=== PATIENT | male | born 1960 | race Caucasian/White ===

== ENCOUNTER 2017-02-15 09:06 | Emergency (ER) | payer BC ==
[2017-02-15] MEDS ORDERED: ASPIRIN 81 MG TABLET, CHEWABLE PO ONE (09:25)
[2017-02-15] MEDS ORDERED: MECLIZINE HCL 25 MG TABLET PO ONE (09:26)
[2017-02-15 10:00] LABS: ABSOLUTE BASOPHILS # (AUTO) 0.1 10^3/uL (0.0-0.2); ABSOLUTE EOSINOPHILS # (AUTO) 0.1 10^3/uL (0.0-0.6); ABSOLUTE LYMPHOCYTES (AUTO) 1.1 10^3/uL (0.5-4.7); ABSOLUTE MONOCYTES (AUTO) 0.5 10^3/uL (0.1-1.4); ABSOLUTE NEUT (AUTO) 5.7 10^3/uL (1.7-8.2); BASOPHILS % (AUTO) 0.8 % (0-2); EOSINOPHILS % (AUTO) 1.5 % (0-6); HEMATOCRIT 43.3 % (37.9-51.0); HEMOGLOBIN 15.5 g/dL (13.5-17.0); HGB HCT DIFFERENCE 3.2; LYMPHOCYTES % (AUTO) 14.8 % (13-45); MEAN CORPUSCULAR HEMOGLOBIN 30.2 pg (27.0-33.4); MEAN CORPUSCULAR HGB CONC 35.8 g/dL (32.0-36.0); MEAN CORPUSCULAR VOLUME 84 fl (80-97); MONOCYTES % (AUTO) 6.8 % (3-13); RED BLOOD COUNT 5.14 10^6/uL (4.35-5.55); RED CELL DISTRIBUTION WIDTH 13.9 % (11.5-14.0); SEGMENTED NEUTROPHILS % (AUTO) 76.1 % (42-78); WHITE BLOOD COUNT 7.5 10^3/uL (4.0-10.5)
--- NOTE | 2017-02-15 10:09 | RADIOLOGY REPORT (SQ) ---
EXAM DESCRIPTION: CT HEAD WITHOUT COMPLETED DATE/TIME: 02/15/2017 9:59 am REASON FOR STUDY: dizziness COMPARISON: CT brain 01/18/2014 TECHNIQUE: Axial images acquired through the brain without intravenous contrast. Images reviewed wi th bone, brain and subdural windows. Images stored on PACS. All CT scanners at this facility use dose modulation, iterative reconstruction, and/or weight based d osing when appropriate to reduce radiation dose to as low as reasonably achievable (ALARA). [facility]: Dose Right [facility]: CareDose [facility]: Dose Right [facility]: Teradose 4D [facility]: iconDial RADIATION DOSE: Up-to-date CT equipment and radiation dose reduction techniques were employed. CTDIv ol: 64.6 mGy. DLP: 1163 mGy-cm. mGy. LIMITATIONS: Mild motion artifact. FINDINGS: VENTRICLES: Normal size and contour. CEREBRUM: No masses. No hemorrhage. No midline shift. No evidence for acute infarction. Normal gra y/white matter differentiation. No areas of low density in the white matter. CEREBELLUM: No masses. No hemorrhage. No alteration of density. No evidence for acute infarction. EXTRAAXIAL SPACES: No fluid collections. No masses. ORBITS AND GLOBE: No intra- or extraconal masses. Normal contour of globe without masses. CALVARIUM: No fracture. PARANASAL SINUSES: Air-fluid level left frontal sinus worrisome for acute sinusitis. SOFT TISSUES: No mass or hematoma. OTHER: No other significant finding. IMPRESSION: Air-fluid level left frontal sinus, worrisome for acute sinusitis EVIDENCE OF ACUTE STROKE: NO. COMMENT: Quality ID # [id number]: Final reports with documentation of one or more dose reduction techniques (e.g., Automated exposure control, adjustment of the mA and/or kV according to patient size, use of iterative reconstruction technique) TECHNICAL DOCUMENTATION: JOB ID: [id number] [employer]- All Rights Reserved
[2017-02-15 10:22] LABS: ALANINE AMINOTRANSFERASE 43 U/L (21-72); ALBUMIN 4.1 g/dL (3.5-5.0); ALKALINE PHOSPHATASE 82 U/L (38-126); ANION GAP 10 (5-19); ASPARTATE AMINO TRANSFERASE 22 U/L (17-59); BILIRUBIN,DIRECT 0.4 mg/dL (0.0-0.4); BILIRUBIN,TOTAL 1.6 mg/dL (0.2-1.3); BLOOD UREA NITROGEN 16 mg/dL (7-20); CALCIUM 9.2 mg/dL (8.4-10.2); CARBON DIOXIDE 26 mmol/L (22-30); CHLORIDE 99 mmol/L (98-107); CREATINE KINASE 155 U/L (55-170); CREATININE RESULT 0.73 mg/dL (0.52-1.25); GLUCOSE 271 mg/dL (75-110); LIPASE 181.5 U/L (23-300); MAGNESIUM 1.7 mg/dL (1.6-2.3); POTASSIUM 5.3 mmol/L (3.6-5.0); SODIUM 135.1 mmol/L (137-145); TOTAL PROTEIN 6.9 g/dL (6.3-8.2)
--- NOTE | 2017-02-15 10:31 | RADIOLOGY REPORT (SQ) ---
EXAM DESCRIPTION: CHEST PA/LAT COMPLETED DATE/TIME: 02/15/2017 10:22 am REASON FOR STUDY: dizziness COMPARISON: 04/24/2016 EXAM PARAMETERS: NUMBER OF VIEWS: two views TECHNIQUE: Digital Frontal and Lateral radiographic views of the chest acquired. RADIATION DOSE: NA LIMITATIONS: none FINDINGS: LUNGS AND PLEURA: There are mild chronic interstitial changes. There is no pulmonary infi ltrate or pleural effusion. There is no mass. MEDIASTINUM AND HILAR STRUCTURES: No masses or contour abnormalities. HEART AND VASCULAR STRUCTURES: Heart normal size. No evidence for failure. BONES: No acute findings. HARDWARE: None in the chest. OTHER: No other significant finding. IMPRESSION: Mild chronic lung changes with no acute cardiopulmonary disease. TECHNICAL DOCUMENTATION: JOB ID: [id number] [employer]- All Rights Reserved
[2017-02-15 10:39] LABS: CREATINE KINASE MB 3.63 ng/mL (<4.55)
[2017-02-15 10:40] LABS: TROPONIN I < 0.012 ng/mL
[2017-02-15] MEDS ORDERED: NORMAL SALINE 1000 ML 1,000 ML IV ONE (11:12)
[2017-02-15] MEDS ORDERED: CEFTRIAXONE 1 GM/D5W RTU 1 GM/50 ML RTUPB IV ONE (11:12)
--- NOTE | 2017-02-15 12:24 | ER Document Report ---
ED General - General Chief Complaint: Dizziness Stated Complaint: DIZZINESS NAUSEA Time Seen by Provider: 02/15/17 09:25 TRAVEL OUTSIDE OF THE [place] IN LAST 30 DAYS: No - HPI Patient complains to provider of: Dizziness nausea Notes: Patient coming in for evaluation of dizziness and nausea. Patient states started acutely while sitting in his desk. Patient states slight headache. Patient states recently started on CPAP since that time has had nasal congestion. No fevers chills. Patient denies any head trauma. Patient denies any chest pain abdominal pain vomiting or diarrhea. Patient is resting comfortably upon my evaluation states dizziness is worsened whenever the patient stands up. Patient states he has been drinking plenty of fluids to stay hydrated over the last 3 days. - Related Data Allergies/Adverse Reactions: No Known Allergies Allergy (Verified 02/15/17 09:08) Past Medical History - Social History Smoking Status: Former Smoker Chew tobacco use (# tins/day): No Frequency of alcohol use: None Drug Abuse: None Family History: Reviewed & Not Pertinent Patient has suicidal ideation: No Patient has homicidal ideation: No - Past Medical History Cardiac Medical History: Reports: Hx Hypertension Pulmonary Medical History: Reports: Hx COPD Endocrine Medical History: Reports: Hx Diabetes Mellitus Type 2 Renal/ Medical History: Denies: Hx Peritoneal Dialysis Musculoskeltal Medical History: Reports Hx Arthritis Psychiatric Medical History: Denies: Hx Depression Past Surgical History: Reports: Hx Orthopedic Surgery - bilateral knees - Immunizations Hx Diphtheria, Pertussis, Tetanus Vaccination: No Review of Systems - Review of Systems Constitutional: No symptoms reported EENT: No symptoms reported Cardiovascular: No symptoms reported Respiratory: No symptoms reported Gastrointestinal: No symptoms reported Genitourinary: No symptoms reported Male Genitourinary: No symptoms reported Musculoskeletal: No symptoms reported Skin: No symptoms reported Hematologic/Lymphatic: No symptoms reported Neurological/Psychological: Other - Dizziness Physical Exam - Vital signs Vitals: Temp Pulse Resp BP 97.6 F 63 18 122/73 02/15/17 09:08 02/15/17 09:08 02/15/17 09:08 02/15/17 09:08 Interpretation: Normal - General General appearance: Appears well, Alert - HEENT Head: Normocephalic, Atraumatic Eyes: Normal Conjunctiva: Normal Cornea: Normal Eyelashes: Normal Pupils: PERRL Ears: Normal External canal: Normal Tympanic membrane: Normal Sinus: Normal Nasal: Normal Mouth/Lips: Normal Pharynx: Normal Neck: Normal Notes: Fatigable nystagmus when patient has far gaze to the left - Respiratory Respiratory status: No respiratory distress Chest status: Nontender Breath sounds: Normal Chest palpation: Normal - Cardiovascular Rhythm: Regular Heart sounds: Normal auscultation Murmur: No - Abdominal Inspection: Normal Distension: No distension Bowel sounds: Normal Tenderness: Nontender Organomegaly: No organomegaly - Back Back: Normal, Nontender - Extremities General upper extremity: Normal inspection, Nontender, Normal color, Normal ROM , Normal temperature General lower extremity: Normal inspection, Nontender, Normal color, Normal ROM , Normal temperature, Normal weight bearing. No: Bryce's sign - Neurological Neuro grossly intact: Yes Cognition: Normal Orientation: AAOx4 [place] Coma Scale Eye Opening: Spontaneous [place] Coma Scale Verbal: Oriented [place] Coma Scale Motor: Obeys Commands [place] Coma Scale Total: 15 Speech: Normal Motor strength normal: LUE, RUE, LLE, RLE Sensory: Normal - Psychological Associated symptoms: Normal affect, Normal mood - Skin Skin Temperature: Warm Skin Moisture: Dry Skin Color: Normal Course - Re-evaluation Re-evalutation: 02/15/17 14:33 Patient was given meclizine patient had improvement of symptoms after meclizine. CT of the head that shows sinusitis will give the patient Rocephin start on amoxicillin for sinus infection. Patient also was given Fran maneuver instructions component of dizziness more likely from benign positional vertigo versus sinus infection. Patient asymptomatic during orthostatics will discharge patient - Vital Signs Vital signs: Temp Pulse Resp BP Pulse Ox 97.8 F 77 18 134/89 H 98 02/15/17 12:30 02/15/17 11:59 02/15/17 12:01 02/15/17 12:01 02/15/17 12:01 - Laboratory Result Diagrams: 02/15/17 09:48 02/15/17 09:48 Laboratory results interpreted by me: 02/15/17 09:48 Sodium 135.1 L Potassium 5.3 H Glucose 271 H Total Bilirubin 1.6 H Discharge - Discharge Clinical Impression: Dizziness Sinusitis Qualifiers: Sinusitis location: unspecified location Chronicity: unspecified Qualified Code (s): J32.9 - Chronic sinusitis, unspecified Condition: Good Disposition: HOME, SELF-CARE Instructions: Dizziness ([facility]), Meclizine ([facility]), Sinusitis ([facility]), Vertigo ([facility]) Additional Instructions: Take antibiotics as prescribed. Take meclizine for dizziness. I will highly recommend trying the Fran maneuver that was printed out for you. Return to the ER symptoms worsen. Drink plenty of fluids to stay hydrated. Prescriptions: Amoxicillin 500 mg PO TID #30 capsule Meclizine HCl [Antivert 25 mg Tablet] 25 mg PO TID PRN #21 tablet PRN Reason: Forms: Return to Work Referrals: HAY WHITNEY PA-C [Primary Care Provider] - Follow up as needed
[2017-02-15 12:26] VITALS: BP 134/89
--- NOTE | 2017-02-15 18:16 | EKG REPORT ---
SEVERITY:- NORMAL ECG - SINUS RHYTHM : Confirmed by: Lucina St MD 15-Feb-2017 18:15:39
== END 2017-02-15 12:35 | disposition home or self-care (01) ==
LOC: ER 09:06
DX: R42 Dizziness and giddiness (principal); J32.9 Chronic sinusitis, unspecified; R11.0 Nausea; R51 Headache; H55.00 Unspecified nystagmus; R09.81 Nasal congestion; I10 Essential (primary) hypertension; J44.9 Chronic obstructive pulmonary disease, unspecified; E11.9 Type 2 diabetes mellitus without complications; Z87.891 Personal history of nicotine dependence
CPT/HCPCS: 93005; 99285; 96365; 36415; 82553; 82550; 83690; 83735; 85025; 80053; 84484; 71020; 70450; 93010; J7030; J0696

== ENCOUNTER 2017-06-04 18:16 | Emergency (ER) | payer BC ==
[2017-06-04 18:23] VITALS: BP 132/73
--- NOTE | 2017-06-04 21:00 | ER Document Report ---
ED Extremity Problem, Lower - General Chief Complaint: Knee Pain Stated Complaint: KNEE PAIN Time Seen by Provider: 06/04/17 20:21 Mode of Arrival: Ambulatory Information source: Patient TRAVEL OUTSIDE OF THE [place] IN LAST 30 DAYS: No - HPI Patient complains to provider of: Pain Location: Knee Occurred: Yesterday Where: Home Onset/Duration: Sudden Quality of pain: Achy Severity: Moderate Recent injury: Yes Notes: Patient arrives with complaints of right knee pain. He states he was walking up the steps in his home yesterday when he felt a pop in the medial aspect of his right knee. The pain is progressively worsened and he now has swelling to the knee going down the leg. He denies any traumatic injury. He denies any numbness, tingling, weakness. He denies any fevers. No redness. No nausea, vomiting, diarrhea. No chest pain or shortness of breath. He denies any other injuries or complaints. Pain is worse with flexion and weightbearing, although he is able to bear weight. - Related Data Allergies/Adverse Reactions: No Known Allergies Allergy (Verified 02/15/17 09:08) Past Medical History - Social History Smoking Status: Former Smoker Chew tobacco use (# tins/day): No Frequency of alcohol use: None Drug Abuse: None Family History: Reviewed & Not Pertinent Patient has suicidal ideation: No Patient has homicidal ideation: No - Past Medical History Cardiac Medical History: Reports: Hx Hypertension Pulmonary Medical History: Reports: Hx COPD Endocrine Medical History: Reports: Hx Diabetes Mellitus Type 2 Renal/ Medical History: Denies: Hx Peritoneal Dialysis Musculoskeltal Medical History: Reports Hx Arthritis Past Surgical History: Reports: Hx Cardiac Catheterization - 1 stent, Hx Orthopedic Surgery - bilateral knees - Immunizations Hx Diphtheria, Pertussis, Tetanus Vaccination: No Review of Systems - Review of Systems -: Yes All other systems reviewed and negative Physical Exam - Vital signs Vitals: Temp Pulse Resp BP Pulse Ox 98.6 F 95 14 132/73 H 96 06/04/17 18:21 06/04/17 18:21 06/04/17 18:21 06/04/17 18:21 06/04/17 18:21 - Notes Notes: GENERAL: alert, cooperative, nontoxic, no distress. HEAD: normocephalic, atraumatic EYES: conjunctiva pink without discharge, no external redness or swelling. EARS: no external swelling, no external redness NOSE: atraumatic, no external swelling MOUTH/THROAT: mucous membranes moist and pink NECK: soft, supple, full range of motion, no meningismus. CHEST: no distress, lungs clear and equal throughout. No wheezing, rales, rhonchi. CARDIAC: regular rate and rhythm, no murmur, normal capillary refill, normal pulses. BACK: full range of motion, no CVA tenderness. EXTREMITIES: Swelling and tenderness to the right knee. Most of the tenderness noted in the medial aspect of the knee. Patient has full range of motion but increased pain with flexion of the knee. Anterior posterior drawer are negative. Increased pain with stressing the MCL. Straight leg raise is normal , patella is intact. Normal pulse and sensation distally. The hip and joints are unremarkable. No redness. Compartments are soft. NEURO: alert and oriented 3, no focal deficits, full range of motion of all extremities. PYSCH: appropriate mood, affect. Patient is cooperative. SKIN: pink, warm, dry, no rash. Course - Re-evaluation Re-evalutation: 06/04/17 21:21 Patient is nontoxic appearing with stable vitals. The patient arrives with complaints of right knee pain while going up the steps yesterday. States that he felt a pop. He is noted to have a knee effusion at this time with no redness or signs of infection. X-ray showed tricompartmental degenerative changes with no acute abnormalities per the radiologist. Patient will be placed in a knee immobilizer, discharged home with a prescription for Reasnor, a referral to Orth [facility]. Instructions to rest, ice, elevate his knee. Follow-up sooner for increased pain, fever, redness, numbness, tingling, weakness, any further concerns. The patient is noted to have elevated blood pressure during today's emergency department visit. The patient was informed of this finding. The patient was instructed that this may be related to pre-hypertension and requires further evaluation with a primary care provider. The patient has no hypertensive symptoms at this time. The patient's emergency department workup and current diagnosis were explained to the patient and or family. Follow-up instructions were provided. Medications if prescribed were discussed. Instructions for when to return to the emergency department including specific worrisome symptoms were discussed with the patient and/or family. - Vital Signs Vital signs: Temp Pulse Resp BP Pulse Ox 98.6 F 95 14 132/73 H 96 06/04/17 18:21 06/04/17 18:21 06/04/17 18:21 06/04/17 18:21 06/04/17 18:21 - Diagnostic Test Radiology reviewed: Image reviewed, Reports reviewed - Tricompartmental degenerative changes, no acute abnormalities per the radiologist. Procedures - Immobilization Right knee Pre-Proc Neuro Vasc Exam: Normal Immobilizer type: Knee immobilizer Performed by: PCT Post-Proc Neuro Vasc Exam: Normal Alignment checked and good: Yes Discharge - Discharge Clinical Impression: Strain of right knee Qualifiers: Encounter type: initial encounter Qualified Code(s): S86.911A - Strain of unspecified muscle(s) and tendon(s) at lower leg level, right leg, initial encounter Condition: Stable Instructions: Ice & Elevation ([facility]), Suspected Internal Knee Injury ([facility]), Knee Immobilizing Splint ([facility]), Sprained Knee ([facility]), Oral Narcotic Medication ( [facility]) Additional Instructions: Take medications as prescribed. Wear splint as needed for pain and comfort. Rest, ice, elevate your knee. Follow-up for increased pain, fever, redness, numbness, tingling, weakness, any further concerns. Your blood pressure was elevated during today's visit. Have this rechecked with your doctor. The medication you were prescribed today may cause drowsiness. Do not drive or operate heavy machinery while taking this medication. Prescriptions: Hydrocodone/Acetaminophen [Reasnor 5-325 mg Tablet] 2 tab PO Q6H PRN #15 tab PRN Reason: Forms: Elevated Blood Pressure, Smoking Cessation Education Referrals: HAY WHITNEY PA-C [Primary Care Provider] - Follow up as needed DYLAN SANTANA DO [ACTIVE STAFF] - Follow up as needed
--- NOTE | 2017-06-04 21:06 | RADIOLOGY REPORT (SQ) ---
EXAM DESCRIPTION: KNEE RIGHT 3 VIEWS COMPLETED DATE/TIME: 06/04/2017 8:33 pm REASON FOR STUDY: pain COMPARISON: 08/25/2013 NUMBER OF VIEWS: Three views. TECHNIQUE: AP, lateral, and sunrise patella radiographic images acquired of the right knee. LIMITATIONS: None. FINDINGS: MINERALIZATION: Normal. BONES: No acute fracture or dislocation. No worrisome bone lesions. Re- demonstration of tricompart mental degenerative changes, chondrocalcinosis, and calcified intra-articular bodies. JOINT: No effusion. SOFT TISSUES: No soft tissue swelling. No radio-opaque foreign body. OTHER: No other significant finding. IMPRESSION: No evidence of acute osseous injury. Stable background of tricompartmental degenerative changes as detailed above. TECHNICAL DOCUMENTATION: JOB ID: [id number] [employer]- All Rights Reserved
== END 2017-06-04 21:36 | disposition home or self-care (01) ==
LOC: ER 18:16
DX: S86.911A Strain of unspecified muscle(s) and tendon(s) at lower leg level, right leg, initial encounter (principal); X58.XXXA Exposure to other specified factors, initial encounter; Y92.008 Other place in unspecified non-institutional (private) residence as the place of occurrence of the external cause
CPT/HCPCS: 99283; 73562; L1830

== ENCOUNTER 2018-05-01 06:25 | Emergency (ER) | payer BC ==
[2018-05-01 06:30] VITALS: BP 132/82
--- NOTE | 2018-05-01 06:45 | ER Document Report ---
ED General - General Chief Complaint: Knee Pain Stated Complaint: RIGHT KNEE PAIN Time Seen by Provider: 05/01/18 06:45 Notes: Patient is a 58-year-old male with arthritis that presents to the emergency department for chief complaint of right knee pain. Patient states that his been having worsening knee pain over the last several days, but this morning around 430 in and seem to be much worse, worse with bearing weight, pain with range of motion. He does have a history of osteoporosis of the knee, was told he needed a knee replacement 2 years ago, but did not pursue that. He usually takes Tylenol for his knee pain but it was not helping so he decided come to the ED. He currently rates his pain as a 3 or 4 out of 10, at rest, but worse with range of motion, and walking. Denies any new or specific injuries. He has had multiple surgeries on that knee in the past when he was much younger. Denies any numbness, tingling or weakness. Past Medical History: Diabetes mellitus, hypertension, atrial fibrillation, on Eliquis, CAD, hyperlipidemia Past Surgical History: ORIF of the right knee, lateral meniscus surgery of the right knee, PCI with stenting Social History: Denies current tobacco, alcohol or drug use. Family History: Reviewed and noncontributory for presenting illness Allergies: Reviewed, see documented allergy list. REVIEW OF SYSTEMS: Other than noted above, the 12 point review of systems was reviewed with the patient and were negative, all pertinent findings are included in the HPI. PHYSICAL EXAMINATION: Vital signs reviewed, nursing noted reviewed. GENERAL: Well-appearing, well-nourished and in no acute distress. HEAD: Atraumatic, normocephalic. EYES: Eyes appear normal, extraocular movements intact, sclera anicteric, conjunctiva are normal. ENT: nares patent, oropharynx clear without exudates. Moist mucous membranes. NECK: Normal range of motion, supple without lymphadenopathy LUNGS: Breath sounds clear to auscultation bilaterally and equal. No wheezes rales or rhonchi. HEART: Regular rate and rhythm without murmurs ABDOMEN: Soft, nontender, normoactive bowel sounds. No rebound, guarding, or rigidity. No masses appreciated. EXTREMITIES: Tenderness with palpation over the medial and lateral joint lines anteriorly of the right knee, and pain with flexion of the right knee as well he can only flex to approximately 75 degrees, past that he has significant pain. No significant pain with varus or valgus stress testing, joint is not unstable, negative anterior and posterior drawer testing. There is a mild joint effusion appreciated, without erythema. The rest the patient's extremity exam is grossly unremarkable, and nontender, good range of motion, no pitting or edema. NEUROLOGICAL: No focal neurological deficits. Moves all extremities spontaneously Motor and sensory grossly intact on exam. PSYCH: Normal mood, normal affect. SKIN: Warm, Dry, normal turgor, no rashes or lesions noted on exposed skin TRAVEL OUTSIDE OF THE [place] IN LAST 30 DAYS: No - Related Data Allergies/Adverse Reactions: No Known Allergies Allergy (Verified 02/15/17 09:08) Past Medical History - Social History Smoking Status: Former Smoker Family History: Reviewed & Not Pertinent - Past Medical History Cardiac Medical History: Reports: Hx Hypertension Pulmonary Medical History: Reports: Hx COPD Endocrine Medical History: Reports: Hx Diabetes Mellitus Type 2 Renal/ Medical History: Denies: Hx Peritoneal Dialysis Musculoskeletal Medical History: Reports Hx Arthritis Past Surgical History: Reports: Hx Cardiac Catheterization - 1 stent, Hx Orthopedic Surgery - bilateral knees - Immunizations Hx Diphtheria, Pertussis, Tetanus Vaccination: No Physical Exam - Vital signs Vitals: Temp Pulse Resp BP Pulse Ox 97.1 F 85 16 132/82 H 96 05/01/18 06:26 05/01/18 06:26 05/01/18 06:26 05/01/18 06:26 05/01/18 06:26 Course - Re-evaluation Re-evalutation: Patient seen and examined vital signs reviewed. Patient was evaluated and treated as appropriate for the patient's presenting symptoms and complaint, with consideration of any critical or life threatening conditions that may be associated with their obtained history and exam as noted above. Patient was treated with Percocet for his pain, x-rays reviewed, demonstrated severe tricompartmental osteoarthritis of the right knee, as well as costochondral no cyst, patient on clinical exam however was not demonstrating signs of calcium pyrophosphate disease, no erythema, or significant effusion. The patient was re-evaluated and was improved, he was also given an Tony wrap and crutches, advised rice therapy, he is advised to follow-up with orthopedic surgery, and given a prescription for oxycodone to take as needed for breakthrough pain, patient has multiple contraindications to NSAIDs, including being on Eliquis, for atrial fibrillation. Evaluation was most consistent with right knee pain Plan of care was discussed with the patient at this point, after careful consideration I feel that that patient can be discharged from the emergency department, the patient was educated treatments and reasons to return to the emergency department based on their presumed diagnosis as noted above, they were advised to followup with a primary care physician in 2-3 days. Patient was agreeable to plan of care. *Note is created using voice recognition software and may contain spelling, syntax or grammatical errors. Knee X-Ray 05/01/18 06:52 FINDINGS/IMPRESSION: 4 views of the right knee. No acute fracture or dislocation. Osteopenia. Severe 3 compartment joint space narrowing and marginal osteophytosis compatible with osteoarthritis. Chondrocalcinosis which can be seen with CPPD. copyright 2010 [employer]- All Rights Reserved - Vital Signs Vital signs: Temp Pulse Resp BP Pulse Ox 97.1 F 85 16 132/82 H 96 05/01/18 06:26 05/01/18 06:26 05/01/18 06:26 05/01/18 06:26 05/01/18 06:26 Procedures - Immobilization Right Knee Pre-Proc Neuro Vasc Exam: Normal Immobilizer type: Tony wrap Performed by: RN Post-Proc Neuro Vasc Exam: Normal Discharge - Discharge Clinical Impression: Knee pain Qualifiers: Chronicity: acute Laterality: right Qualified Code(s): M25.561 - Pain in right knee Condition: Stable Disposition: HOME, SELF-CARE Instructions: Arthritis ([facility]), Use of Crutches ([facility]) Prescriptions: Oxycodone HCl [Oxycontin Ir 5 Mg Tablet] 1 mg PO Q6H PRN #15 tablet PRN Reason: knee pain Referrals: HAY WHITNEY PA-C [Primary Care Provider] - Follow up as needed [facility] [Provider Group] - Follow up as needed
[2018-05-01] MEDS ORDERED: OXYCODONE-ACETAMINOPHEN 5-325 MG TABLET PO ONE (06:52)
--- NOTE | 2018-05-01 07:47 | RADIOLOGY REPORT (SQ) ---
EXAM DESCRIPTION: XR KNEE 3 VIEWS COMPLETED DATE/TME: 05/01/2018 06:52 CLINICAL HISTORY: 58 years, Male, right knee pain COMPARISON: None. FINDINGS/IMPRESSION: 4 views of the right knee. No acute fracture or dislocation. Osteopenia. Severe 3 compartment joint space narrowing and marginal osteophytosis compatible with osteoarthritis. Chondrocalcinosis which can be seen with CPPD. copyright 2010 [employer]- All Rights Reserved
[2018-05-01] MEDS ORDERED: COLCHICINE 0.6 MG TABLET PO ONE (07:50)
== END 2018-05-01 08:17 | disposition home or self-care (01) ==
LOC: ER 06:25
DX: M17.11 Unilateral primary osteoarthritis, right knee (principal); M11.261 Other chondrocalcinosis, right knee; M85.861 Other specified disorders of bone density and structure, right lower leg; M25.561 Pain in right knee; M25.461 Effusion, right knee; E11.9 Type 2 diabetes mellitus without complications; I10 Essential (primary) hypertension; J44.9 Chronic obstructive pulmonary disease, unspecified; I25.10 Atherosclerotic heart disease of native coronary artery without angina pectoris; I48.91 Unspecified atrial fibrillation; Z79.01 Long term (current) use of anticoagulants; Z87.891 Personal history of nicotine dependence
CPT/HCPCS: 99283

== ENCOUNTER 2018-08-16 10:18 | Emergency (ER) | payer BC ==
[2018-08-16] MEDS ORDERED: ONDANSETRON 4 MG TAB.RAPDIS PO ONE (10:59)
--- NOTE | 2018-08-16 10:59 | ER Document Report ---
ED Medical Screen (RME) - General Chief Complaint: Dizziness Stated Complaint: DIZZINESS Time Seen by Provider: 08/16/18 10:48 Primary Care Provider: HAY WHITNEY PA-C [Primary Care Provider] - Follow up as needed TRAVEL OUTSIDE OF THE [place] IN LAST 30 DAYS: No - HPI Notes: 08/16/18 10:56 Patient is a 58-year-old male with a history of diabetes, hypertension, vertigo, coronary artery disease, peripheral neuropathy who presents to the emergency department complaining of dizziness, lightheadedness, and nausea that began this morning with right-sided cheek numbness that began at 8 AM. Patient states that he usually does have episodes of vertigo which are maintained with medicine, but this 1 has not responded and has increased which prompted him to come to the emergency department. His sugars were in the 170s when he checked it this morning. He is otherwise been eating and drinking without difficulty. He is urinating normally and having normal bowel movements. He does take Eliquis. Denies any headache, fever, head injury, neck pain, changes in vision/speech/mentation/hearing, URI, sore throat, chest pain, palpitations, syncope, cough, shortness of breath, wheeze, dyspnea, abdominal pain, vomiting/diarrhea, urinary retention, dysuria, hematuria, loss of control of bowel or bladder, saddle anesthesia, muscle paralysis/weakness, or rash. I have treated and performed a rapid initial assessment of this patient. A comprehensive ED assessment and evaluation of the patient, analysis of test results and completion of medical decision making process will be conducted by additional ED providers. PHYSICAL EXAMINATION: GENERAL: Well-appearing, well-nourished and in no acute distress. A&Ox4. Answers questions appropriately. HEAD: Atraumatic, normocephalic. Non-tender. EYES: Pupils equal round and reactive to light, extraocular movements intact, sclera anicteric, conjunctiva are normal. No nystagmus. ENT: EAC clear b/l. TM's intact b/l without erythema, fluid, or perforation. Nares patent and without discharge. oropharynx clear without exudates. NECK: Normal range of motion, supple without lymphadenopathy. No rigidity/meningismus. No midline tenderness. LUNGS: Breath sounds clear to auscultation bilaterally and equal. No wheezes rales or rhonchi. HEART: Regular rate and rhythm without murmurs, rubs, gallops. ABDOMEN: Soft, nontender, nondistended abdomen. No guarding, no rebound. Normal bowel sounds present. No CVA tenderness bilaterally. Musculoskeletal: Ext's b/l: FROM to passive/active. Strength 5+/5. No deficits noted. No bony tenderness of extremities. Extremities: Peripheral pulses 2+. Capillary refill less than 2 seconds. NEUROLOGICAL: NIH 1 (subjective dec sensation rt face/cheek)--peripheral neuropathy b/l otherwise to feet. GCS 15. Cranial nerves grossly intact. Normal speech, normal gait. Normal sensory, motor exams. Reflexes 2+ b/l. Pronator drift negative. Heel/montilla, finger/nose wnl. Rhomberg neg. PSYCH: Normal mood, normal affect. SKIN: Warm, Dry, normal turgor, no rashes or lesions noted. - Related Data Allergies/Adverse Reactions: No Known Allergies Allergy (Verified 08/16/18 10:19) Past Medical History - Past Medical History Cardiac Medical History: Reports: Hx Atrial Fibrillation - on Eliquis, Hx Hypertension Pulmonary Medical History: Reports: Hx COPD Endocrine Medical History: Reports: Hx Diabetes Mellitus Type 2 Renal/ Medical History: Denies: Hx Peritoneal Dialysis Musculoskeltal Medical History: Reports Hx Arthritis Past Surgical History: Reports: Hx Cardiac Catheterization - 1 stent, Hx Orthopedic Surgery - bilateral knees - Immunizations Hx Diphtheria, Pertussis, Tetanus Vaccination: No Physical Exam - Vital signs Vitals: Temp Pulse Resp BP Pulse Ox 97.4 F 80 18 150/83 H 98 08/16/18 10:22 08/16/18 10:22 08/16/18 10:22 08/16/18 10:22 08/16/18 10:22 Course - Vital Signs Vital signs: Temp Pulse Resp BP Pulse Ox 97.4 F 80 18 150/83 H 98 08/16/18 10:22 08/16/18 10:52 08/16/18 10:52 08/16/18 10:52 08/16/18 10:52 Doctor's Discharge - Discharge Referrals: HAY WHITNEY PA-C [Primary Care Provider] - Follow up as needed
[2018-08-16] MEDS ORDERED: ONDANSETRON HCL INJ/PF 4 MG/2 ML SDV IV ONE (11:29)
[2018-08-16 11:53] LABS: ABSOLUTE EOSINOPHILS # (AUTO) 0.1 10^3/uL (0.0-0.6); ABSOLUTE LYMPHOCYTES (AUTO) 1.2 10^3/uL (0.5-4.7); ABSOLUTE NEUT (AUTO) 12.9 10^3/uL (1.7-8.2); BASOPHILS % (AUTO) 0.3 % (0-2); EOSINOPHILS % (AUTO) 0.7 % (0-6); HEMATOCRIT 45.9 % (37.9-51.0); HEMOGLOBIN 15.7 g/dL (13.5-17.0); LYMPHOCYTES % (AUTO) 7.6 % (13-45); MEAN CORPUSCULAR HEMOGLOBIN 29.1 pg (27.0-33.4); MEAN CORPUSCULAR HGB CONC 34.2 g/dL (32.0-36.0); MEAN CORPUSCULAR VOLUME 85 fl (80-97); MONOCYTES % (AUTO) 6.3 % (3-13); PLATELET COUNT 195 10^3/uL (150-450); RED CELL DISTRIBUTION WIDTH 14.8 % (11.5-14.0); SEGMENTED NEUTROPHILS % (AUTO) 85.1 % (42-78); TOTAL CELLS COUNTED % (AUTO) 100 %; WHITE BLOOD COUNT 15.2 10^3/uL (4.0-10.5)
[2018-08-16 12:01] LABS: APPEARANCE,URINE CLEAR; BILIRUBIN,URINE NEGATIVE (NEGATIVE); COLOR,URINE YELLOW; GLUCOSE, URINE >=500 mg/dL (NEGATIVE); KETONES,URINE NEGATIVE (NEGATIVE); LEUKOCYTE ESTERASE,URINE NEGATIVE (NEGATIVE); NITRITE,URINE NEGATIVE (NEGATIVE); PROTEIN,URINE NEGATIVE (NEGATIVE); URINE SPECIFIC GRAVITY 1.026; UROBILINOGEN,URINE NEGATIVE mg/dL (<2.0)
--- NOTE | 2018-08-16 12:05 | RADIOLOGY REPORT (SQ) ---
EXAM DESCRIPTION: CHEST SINGLE VIEW COMPLETED DATE/TIME: 08/16/2018 11:55 am REASON FOR STUDY: dizzy COMPARISON: 04/24/2016 EXAM PARAMETERS: NUMBER OF VIEWS: One view. TECHNIQUE: Single frontal radiographic view of the chest acquired. RADIATION DOSE: NA LIMITATIONS: None. FINDINGS: LUNGS AND PLEURA: Stable chronic interstitial changes and minimal left basilar scarring. Prominent costosternal cartilage on the right, stable. No pleural effusion or pneumothorax. MEDIASTINUM AND HILAR STRUCTURES: No masses. Contour normal. HEART AND VASCULAR STRUCTURES: Heart normal in size. Normal vasculature. BONES: No acute findings. HARDWARE: None in the chest. OTHER: No other significant finding. IMPRESSION: No evidence of acute cardiopulmonary process. TECHNICAL DOCUMENTATION: JOB ID: [id number] [employer]- All Rights Reserved Reading location - IP/workstation name: [email or web address]
[2018-08-16 12:20] LABS: ALANINE AMINOTRANSFERASE 36 U/L (21-72); ALBUMIN 4.3 g/dL (3.5-5.0); ALKALINE PHOSPHATASE 73 U/L (38-126); ANION GAP 11 (5-19); ASPARTATE AMINO TRANSFERASE 21 U/L (17-59); BILIRUBIN,DIRECT 0.3 mg/dL (0.0-0.4); BILIRUBIN,TOTAL 1.3 mg/dL (0.2-1.3); BLOOD UREA NITROGEN 18 mg/dL (7-20); CALCIUM 9.2 mg/dL (8.4-10.2); CARBON DIOXIDE 25 mmol/L (22-30); CHLORIDE 103 mmol/L (98-107); GLUCOSE 129 mg/dL (75-110); PHOSPHORUS 4.3 mg/dL (2.5-4.5); POTASSIUM 4.4 mmol/L (3.6-5.0); TOTAL PROTEIN 7.5 g/dL (6.3-8.2)
--- NOTE | 2018-08-16 12:34 | ER Document Report ---
Addendum entered and electronically signed by GIOVANI ACUNA FNP 08/16/18 21:48: Course - Re-evaluation Re-evalutation: 08/16/18 13:40 After speaking with the patient, the patient has decided that he does not want to be admitted to have carotid Dopplers and an MRI done. He is leaving AGAINST MEDICAL ADVICE. Although he is leaving AGAINST MEDICAL ADVICE, I have referred him out to a neurologist and to ENT to have his episodes of dizziness/vertigo evaluated. I discussed the risks of him leaving AGAINST MEDICAL ADVICE. He verbalized understanding. - Vital Signs Vital signs: Temp Pulse Resp BP Pulse Ox 98.1 F 89 18 119/64 96 08/16/18 14:21 08/16/18 14:21 08/16/18 14:36 08/16/18 14:36 08/16/18 14:36 - Laboratory Result Diagrams: 08/16/18 11:28 08/16/18 11:28 Laboratory results interpreted by me: 08/16/18 08/16/18 08/16/18 11:28 11:28 11:28 WBC 15.2 H RDW 14.8 H Seg Neutrophils % 85.1 H Lymphocytes % 7.6 L Absolute Neutrophils 12.9 H Glucose 129 H Urine Glucose (UA) >=500 H Addendum entered and electronically signed by GIOVANI ACUNA FNP 08/16/18 15:33: Discharge - Discharge Clinical Impression: Dizziness, Vertigo, Left against medical advice Condition: Stable Disposition: HOME, SELF-CARE Instructions: Dizziness ([facility]), Vertigo ([facility]) Additional Instructions: You were seen today in the emergency department for dizziness. We have offered for you to be monitored here in the hospital and have diagnostic testing, such as an MRI and carotid Doppler studies to further evaluate your cause of d izziness, but you have opted to go home at this time. Since you are decided to go home, please follow-up closely with your primary care, neurology, and the ENT doctors that we have recommended below. If you have another episode of vertigo, have worsening symptoms, develop weakness, numbness, tingling, or have any symptoms that are worrisome to you, please Referrals: HAY WHITNEY PA-C [Primary Care Provider] - Follow up tomorrow HAY OHLDEN DO [ASSOCIATE] - 08/17/18 DAREK LITTLE MD [NO LOCAL MD] - 08/17/18 Original Note: ED General - General TRAVEL OUTSIDE OF THE [place] IN LAST 30 DAYS: No <GIOVANI ACUNA - Last Filed: 08/16/18 12:59> <MEGAN GARCIA Jeannette - Last Filed: 08/16/18 13:37> - General Chief Complaint: Dizziness Stated Complaint: DIZZINESS Time Seen by Provider: 08/16/18 10:48 Primary Care Provider: HAY WHITNEY PA-C [Primary Care Provider] - Follow up in 3-5 days Notes: Patient is a 58-year-old male who presents emergency department with a chief complaint of dizziness, nausea, and numbness to the right side of his face. He states that his dizziness started around 8:00 this morning. He does have a history of vertigo, took 1 of his meclizine medication, but did not have relief of his symptoms, therefore he called family and was brought to the emergency department. At the time of my assessment he states that his dizziness is better. Denies any loss of function or weakness. His past medical history includes hypertension, coronary artery disease with stent placement in 2017, peripheral neuropathy, hyperlipidemia, diabetes, atrial fibrillation. He is currently on Eliquis. 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 Denies any chest pain, shortness of breath, difficulty breathing, sinus pressure, abdominal pain, vomiting, diarrhea, or headache. (GIOVANI ACUNA) - Related Data Allergies/Adverse Reactions: No Known Allergies Allergy (Verified 08/16/18 10:19) Past Medical History - General Information source: Patient - Social History Smoking Status: Current Every Day Smoker Family History: Reviewed & Not Pertinent Patient has suicidal ideation: No Patient has homicidal ideation: No - Past Medical History Cardiac Medical History: Reports: Hx Atrial Fibrillation - on Eliquis, Hx Hypertension Pulmonary Medical History: Reports: Hx COPD Endocrine Medical History: Reports: Hx Diabetes Mellitus Type 2 Renal/ Medical History: Denies: Hx Peritoneal Dialysis Musculoskeletal Medical History: Reports Hx Arthritis Past Surgical History: Reports: Hx Cardiac Catheterization - 1 stent, Hx Orthopedic Surgery - bilateral knees - Immunizations Hx Diphtheria, Pertussis, Tetanus Vaccination: No <GIOVANI ACUNA - Last Filed: 08/16/18 12:59> Review of Systems <GIOVANI ACUNA - Last Filed: 08/16/18 12:59> - Review of Systems Notes: REVIEW OF SYSTEMS: CONSTITUTIONAL : Denies recent illness. Denies recent unintentional weight loss. Denies fever, chills, or sweats. EENT: Denies eye, ear, throat, or mouth pain, discharge, or symptoms. Denies nasal or sinus congestion. CARDIOVASCULAR: Denies chest pain. RESPIRATORY: Denies shortness of breath, cough, congestion, difficulty breathing, or wheezing. GASTROINTESTINAL: Denies nausea, vomiting, and diarrhea. Denies abdominal pain. Denies constipation. GENITOURINARY: Denies difficulty urinating, burning, blood in urine, urgency or frequency. MUSCULOSKELETAL: Denies neck and back pain. Denies joint pain or swelling. SKIN: Denies rash, itchiness, or lesions HEMATOLOGIC : Denies easy bruising or bleeding. LYMPHATIC: Denies swollen, painful, enlarged glands. NEUROLOGICAL: See HPI PSYCHIATRIC: Denies stress, anxiety, alteration in sleep patterns, or depression. All other systems reviewed and negative. (GIOVANI ACUNA) Physical Exam <GIOVANI ACUNA - Last Filed: 08/16/18 12:59> - Vital signs Vitals: Temp Pulse Resp BP Pulse Ox 97.4 F 80 18 150/83 H 98 08/16/18 10:22 08/16/18 10:22 08/16/18 10:22 08/16/18 10:22 08/16/18 10:22 - Notes Notes: PHYSICAL EXAMINATION: GENERAL: Appears well, healthy, well-nourished, no acute distress. HEAD: Normocephalic, atraumatic. EYES: PERRL, conjunctiva normal, all extraocular movements intact, sclera nonicteric ENT: Moist mucous membranes. Right perforated tempanic membrane, patient states that he has had a perforated eardrum in his right side for a long time. Normal left tympanic membrane. NECK: Supple, no noticeable swelling, redness, rash. Normal range of motion. LUNGS: Equal breath sounds bilaterally and clear to auscultation. No wheezes rales or rhonchi. CARDIOVASCULAR: S1-S2, regular rate, regular rhythm. Radial pulses 2+, normal. ABDOMEN: Normoactive bowel sounds. Soft, nontender, no guarding, no rebound tenderness, and no masses palpated. EXTREMITIES: Normal strength and range of motion, no pitting or edema. No cya nosis. NEUROLOGICAL: Moves all extremities upon command. Strength 5/5 in all extremities. PSYCH: Normal mood, normal affect. SKIN: Warm, dry. No rash, lesions, ulcerations noted. Normal skin turgor. (GIOVANI ACUNA) Course - Laboratory Result Diagrams: 08/16/18 11:28 08/16/18 11:28 <GIOVANI ACUNA - Last Filed: 08/16/18 12:59> - Laboratory Result Diagrams: 08/16/18 11:28 08/16/18 11:28 <MEGAN GARCIA - Last Filed: 08/16/18 13:37> - Re-evaluation Re-evalutation: 08/16/18 12:[address] of the head is negative for any intracranial findings. His sinuses are also unremarkable. Patient's EKG shows sinus rhythm with a rate of 84. No arrhythmias noted. Chest x-ray was negative for any acute findings. Hematology shows elevated white blood cell count of 15,000. He is not tachycardic. Chemistries are normal. Awaiting TSH ordered triage. States that he does feel remarkably better here in the emergency department. He states that normally his meclizine takes only a short amount of time to work, but was nervous that it was not working quickly this time. (GIOVANI ACUNA) 08/16/18 13:27 I personally and independently obtained patient history and examined the patient and have reviewed the APC's note, reviewed, discussed and agree with their assessment and plan. HISTORY OF PRESENT ILLNESS: Patient is a 58-year-old male that presents to the emergency department for chief complaint of dizziness. Patient had acute onset of dizziness at 8 AM this morning which was worse when he was looking straight down at the ground. He does have a history of vertigo but states this felt different. He had associated right-sided facial numbness. Currently the numbness has resolved and the dizziness is improved but not completely resolved. Patient no longer is ataxic and has no discernible focal neurologic deficit currently. MEDICAL DECISION MAKING: Vitals reviewed. Nursing notes reviewed. Patient has multiple risk factors for stroke including atrial fibrillation, obesity, hypertension and hyperlipidemia. Patient has had TIAs in the past. He does have a history of vertigo however he has never had associated facial numbness. I did recommend patient get admitted to the hospital for further vertebrobasilar insufficiency workup. Patient is refusing admission to the hospital. He has capacity to make medical decision and understands the risks and benefits of leaving AGAINST MEDICAL ADVICE. Patient will be referred to neurology and ENT for further workup as a dizziness and facial numbness. I counseled him on stroke symptoms and return precautions. Patient and family insistent on leaving AMA. He does have an appointment at the [place] on Tuesday which she will keep as well. Please review detail APC documentation. *Note is created using voice recognition software and may contain spelling, syntax or grammatical errors. (MEGAN GARCIA) - Vital Signs Vital signs: Temp Pulse Resp BP Pulse Ox 97.4 F 80 33 H 111/88 H 96 08/16/18 10:22 08/16/18 10:52 08/16/18 13:00 08/16/18 12:00 08/16/18 13:00 - Laboratory Laboratory results interpreted by me: 08/16/18 08/16/18 08/16/18 11:28 11:28 11:28 WBC 15.2 H RDW 14.8 H Seg Neutrophils % 85.1 H Lymphocytes % 7.6 L Absolute Neutrophils 12.9 H Glucose 129 H Urine Glucose (UA) >=500 H Discharge <GIOVANI ACUNA - Last Filed: 08/16/18 12:59> <MEGAN GARCIA - Last Filed: 08/16/18 13:37> - Discharge Clinical Impression: Dizziness, Vertigo Condition: Stable Disposition: HOME, SELF-CARE Instructions: Antinausea Medication ([facility]), Dizziness ([facility]), Vertigo ([facility]) Referrals: HAY WHITNEY PA-C [Primary Care Provider] - Follow up in 3-5 days
--- NOTE | 2018-08-16 12:46 | RADIOLOGY REPORT (SQ) ---
EXAM DESCRIPTION: CT HEAD WITHOUT COMPLETED DATE/TIME: 08/16/2018 12:34 pm REASON FOR STUDY: Rt face tingling/numbness COMPARISON: 02/15/2017 TECHNIQUE: Axial images acquired through the brain without intravenous contrast. Images reviewed wi th bone, brain and subdural windows. Additional sagittal and coronal reconstructions were generated. Images stored on PACS. All CT scanners at this facility use dose modulation, iterative reconstruction, and/or weight based d osing when appropriate to reduce radiation dose to as low as reasonably achievable (ALARA). [facility]: Dose Right [facility]: CareDose [facility]: Dose Right [facility]: Teradose 4D [facility]: [employer] RADIATION DOSE: CT Rad equipment meets quality standard of care and radiation dose reduction techniq ues were employed. CTDIvol: 53.2 mGy. DLP: 1070 mGy-cm. mGy. LIMITATIONS: None. FINDINGS: VENTRICLES: Normal size and contour. CEREBRUM: No masses. No hemorrhage. No midline shift. No evidence for acute infarction. Normal gra y/white matter differentiation. No areas of low density in the white matter. CEREBELLUM: No masses. No hemorrhage. No alteration of density. No evidence for acute infarction. EXTRAAXIAL SPACES: No fluid collections. No masses. ORBITS AND GLOBE: No intra- or extraconal masses. Normal contour of globe without masses. CALVARIUM: No fracture. PARANASAL SINUSES: No fluid or mucosal thickening. SOFT TISSUES: No mass or hematoma. OTHER: No other significant finding. IMPRESSION: No acute intracranial pathology. EVIDENCE OF ACUTE STROKE: NO. COMMENT: Quality ID # [id number]: Final reports with documentation of one or more dose reduction techniques (e.g., Automated exposure control, adjustment of the mA and/or kV according to patient size, use of iterative reconstruction technique) TECHNICAL DOCUMENTATION: JOB ID: [id number] [employer]- All Rights Reserved Reading location - IP/workstation name: [email or web address]
[2018-08-16 14:46] VITALS: BP 119/64
--- NOTE | 2018-08-16 18:44 | EKG REPORT ---
SEVERITY:- NORMAL ECG - SINUS RHYTHM : Confirmed by: Simon Vizcaino MD 16-Aug-2018 18:43:13
== END 2018-08-16 14:49 | disposition home or self-care (01) ==
LOC: ER 10:18
DX: R42 Dizziness and giddiness (principal); R11.0 Nausea; H72.91 Unspecified perforation of tympanic membrane, right ear; E11.42 Type 2 diabetes mellitus with diabetic polyneuropathy; R20.0 Anesthesia of skin; D72.829 Elevated white blood cell count, unspecified; E66.9 Obesity, unspecified; E78.5 Hyperlipidemia, unspecified; F17.200 Nicotine dependence, unspecified, uncomplicated; J44.9 Chronic obstructive pulmonary disease, unspecified; I10 Essential (primary) hypertension; I25.10 Atherosclerotic heart disease of native coronary artery without angina pectoris; I48.91 Unspecified atrial fibrillation; Z79.01 Long term (current) use of anticoagulants; Z95.5 Presence of coronary angioplasty implant and graft; Z53.20 Procedure and treatment not carried out because of patient's decision for unspecified reasons
CPT/HCPCS: 93005; 99284; 96374; 36415; 83735; 84100; 84443; 85025; 80053; 81001; 84484; 71045; 70450; 93010; J2405

== ENCOUNTER 2018-10-03 17:57 | Emergency (ER) | payer BC ==
[2018-10-03] MEDS ORDERED: DIAZEPAM 5 MG TABLET PO ONE (18:30)
--- NOTE | 2018-10-03 18:32 | ER Document Report ---
ED Medical Screen (RME) - General Chief Complaint: Dizziness Stated Complaint: DIZZINESS,NAUSEA Time Seen by Provider: 10/03/18 18:26 Primary Care Provider: HAY WHITNEY PA-C [Primary Care Provider] - Follow up as needed Mode of Arrival: Ambulatory Information source: Patient TRAVEL OUTSIDE OF THE [place] IN LAST 30 DAYS: No - HPI Patient complains to provider of: DIZZINESS Notes: 10/03/18 18:31 Patient here with complaints of dizziness. Started this morning. States that he feels like he is rocking back and forth and has nausea. Is a history of vertigo, he took some Antivert without any relief. He was seen for similar symptoms beginning of last month and had a negative head CT at that time. No head injury. No unilateral numbness, tingling, weakness. Also complains of feeling slightly short of breath. No chest pain. Exam Nontoxic, no distress. Lungs clear and equal throughout. Heart sounds normal. Nonfocal neuro exam. Normal cerebellar exam. Plan CBC, CMP, troponin, EKG, chest x-ray due to his complaints of dizziness as well as shortness of breath. Since he is taken meclizine without relief of his symptoms, I have ordered Valium. An initial examination was made on the patient as part of the triage process, and it was determined a more comprehensive evaluation was necessary. Initial labs were ordered and patient was transferred to another provider in the ED who assumed care and finished evaluation and plan. - Related Data Allergies/Adverse Reactions: No Known Allergies Allergy (Verified 10/03/18 17:58) Past Medical History - Social History Frequency of alcohol use: None Drug Abuse: None - Past Medical History Cardiac Medical History: Reports: Hx Atrial Fibrillation - on Eliquis, Hx Hy pertension Pulmonary Medical History: Reports: Hx COPD Endocrine Medical History: Reports: Hx Diabetes Mellitus Type 2 Renal/ Medical History: Denies: Hx Peritoneal Dialysis Musculoskeltal Medical History: Reports Hx Arthritis Past Surgical History: Reports: Hx Cardiac Catheterization - 1 stent, Hx Orthopedic Surgery - bilateral knees - Immunizations Hx Diphtheria, Pertussis, Tetanus Vaccination: No Physical Exam - Vital signs Vitals: Temp Pulse Resp BP Pulse Ox 98.7 F 86 16 160/87 H 96 10/03/18 18:07 10/03/18 18:07 10/03/18 18:07 10/03/18 18:07 10/03/18 18:07 Course - Vital Signs Vital signs: Temp Pulse Resp BP Pulse Ox 98.7 F 86 16 160/87 H 96 10/03/18 18:07 10/03/18 18:07 10/03/18 18:07 10/03/18 18:07 10/03/18 18:07 Doctor's Discharge - Discharge Referrals: HAY WHITNEY PA-C [Primary Care Provider] - Follow up as needed
[2018-10-03 19:00] LABS: ABSOLUTE BASOPHILS # (AUTO) 0.1 10^3/uL (0.0-0.2); ABSOLUTE EOSINOPHILS # (AUTO) 0.1 10^3/uL (0.0-0.6); ABSOLUTE LYMPHOCYTES (AUTO) 1.6 10^3/uL (0.5-4.7); ABSOLUTE MONOCYTES (AUTO) 0.7 10^3/uL (0.1-1.4); ABSOLUTE NEUT (AUTO) 5.8 10^3/uL (1.7-8.2); BASOPHILS % (AUTO) 0.7 % (0-2); EOSINOPHILS % (AUTO) 1.3 % (0-6); HEMATOCRIT 43.8 % (37.9-51.0); HEMOGLOBIN 14.9 g/dL (13.5-17.0); LYMPHOCYTES % (AUTO) 19.3 % (13-45); MEAN CORPUSCULAR HEMOGLOBIN 28.7 pg (27.0-33.4); MEAN CORPUSCULAR HGB CONC 33.9 g/dL (32.0-36.0); MEAN CORPUSCULAR VOLUME 85 fl (80-97); MONOCYTES % (AUTO) 8.4 % (3-13); PLATELET COUNT 214 10^3/uL (150-450); RED BLOOD COUNT 5.18 10^6/uL (4.35-5.55); RED CELL DISTRIBUTION WIDTH 14.4 % (11.5-14.0); SEGMENTED NEUTROPHILS % (AUTO) 70.3 % (42-78); TOTAL CELLS COUNTED % (AUTO) 100 %; WHITE BLOOD COUNT 8.3 10^3/uL (4.0-10.5)
--- NOTE | 2018-10-03 19:08 | RADIOLOGY REPORT (SQ) ---
EXAM DESCRIPTION: CHEST SINGLE VIEW COMPLETED DATE/TIME: 10/03/2018 6:54 pm REASON FOR STUDY: DIZZINESS COMPARISON: 08/16/2018 EXAM PARAMETERS: NUMBER OF VIEWS: One view. TECHNIQUE: Single frontal radiographic view of the chest acquired. RADIATION DOSE: NA LIMITATIONS: None. FINDINGS: LUNGS AND PLEURA: No opacities, masses or pneumothorax. No pleural effusion. MEDIASTINUM AND HILAR STRUCTURES: No masses. Contour normal. HEART AND VASCULAR STRUCTURES: Heart normal in size. Normal vasculature. BONES: No acute findings. HARDWARE: None in the chest. OTHER: No other significant finding. IMPRESSION: NO ACUTE RADIOGRAPHIC FINDING IN THE CHEST. TECHNICAL DOCUMENTATION: JOB ID: [id number] [employer]- All Rights Reserved Reading location - IP/workstation name: [email or web address]
[2018-10-03 19:15] LABS: ALANINE AMINOTRANSFERASE 31 U/L (21-72); ALBUMIN 4.2 g/dL (3.5-5.0); ALKALINE PHOSPHATASE 84 U/L (38-126); ANION GAP 13 (5-19); ASPARTATE AMINO TRANSFERASE 19 U/L (17-59); BILIRUBIN,DIRECT 0.3 mg/dL (0.0-0.4); BILIRUBIN,TOTAL 0.8 mg/dL (0.2-1.3); BLOOD UREA NITROGEN 25 mg/dL (7-20); CALCIUM 9.5 mg/dL (8.4-10.2); CARBON DIOXIDE 22 mmol/L (22-30); CHLORIDE 102 mmol/L (98-107); GLUCOSE 182 mg/dL (75-110); POTASSIUM 4.3 mmol/L (3.6-5.0); SODIUM 136.5 mmol/L (137-145); TOTAL PROTEIN 7.4 g/dL (6.3-8.2)
[2018-10-03 20:13] VITALS: BP 120/89
[2018-10-03] MEDS ORDERED: MECLIZINE HCL 25 MG TABLET PO ONE (20:15)
[2018-10-03] MEDS ORDERED: ONDANSETRON 4 MG TAB.RAPDIS PO ONE (20:16)
--- NOTE | 2018-10-03 20:24 | ER Document Report ---
ED General - General Chief Complaint: Dizziness Stated Complaint: DIZZINESS,NAUSEA Time Seen by Provider: 10/03/18 18:26 Primary Care Provider: HAY WHITNEY PA-C [Primary Care Provider] - Follow up in 3-5 days HAY HOLDEN DO [ASSOCIATE] - Follow up in 3-5 days Mode of Arrival: Ambulatory Information source: Patient, Relative, [facility] Records Notes: 58-year-old male with atrial fibrillation, hypertension, COPD, type 2 diabetes presents with complaint of dizziness that started 11 hours prior to arrival while driving. Patient describes the dizziness as things spinning with associated nausea, no vomiting. He denies any headache, visual changes, weakness, numbness. Patient has had prior similar symptoms with his last episode 1 month ago. He has been seen by his primary care physician for this and prescribed meclizine which he states usually works but did not work today. Patient's dizziness is worse with abrupt head movement, abrupt standing or just laying on his left side. Patient did receive Valium prior to my exam and reports improvement of his symptoms although nausea is still present. Patient does admit to chronic ear ringing, hearing loss that has been ongoing for several years due to a accident. [facility] and is going to request E[facility] evaluation. Patient also complaining of intermittent shortness of breath but states this has resolved and believes this was associated with anxiety due to his dizziness. TRAVEL OUTSIDE OF THE [place] IN LAST 30 DAYS: No - HPI Onset: This morning Onset/Duration: Sudden, Better Quality of pain: No pain Severity: None Pain Level: Denies Associated symptoms: Nausea, Other - Ear ringing. denies: Body/muscle aches, Chest pain, Headache, Vomiting, Shortness of breath Exacerbated by: Denies - , dizziness Relieved by: Remaining still Similar symptoms previously: Yes Recently seen / treated by doctor: Yes - Related Data Allergies/Adverse Reactions: No Known Allergies Allergy (Verified 10/03/18 17:58) Past Medical History - General Information source: Patient - Social History Smoking Status: Former Smoker Frequency of alcohol use: None Drug Abuse: None Lives with: Spouse/Significant other Family History: Reviewed & Not Pertinent Patient has suicidal ideation: No Patient has homicidal ideation: No - Past Medical History Cardiac Medical History: Reports: Hx Atrial Fibrillation - on Eliquis, Hx Hypertension Pulmonary Medical History: Reports: Hx COPD Endocrine Medical History: Reports: Hx Diabetes Mellitus Type 2 Renal/ Medical History: Denies: Hx Peritoneal Dialysis Musculoskeletal Medical History: Reports Hx Arthritis Past Surgical History: Reports: Hx Cardiac Catheterization - 1 stent, Hx Orthopedic Surgery - bilateral knees - Immunizations Hx Diphtheria, Pertussis, Tetanus Vaccination: No Review of Systems - Review of Systems Notes: REVIEW OF SYSTEMS: CONSTITUTIONAL : Denies fever, chills, or sweats. Denies recent illness. Denies weight loss, recent hospitalizations. EENT: Denies visual changes, eye pain. Denies sore throat, oral lesions, difficulty swallowing. CARDIOVASCULAR: Denies chest pain. Denies palpitations. Denies lower extremity edema. RESPIRATORY: Denies cough. Denies shortness of breath, wheezing. GASTROINTESTINAL: Denies abdominal pain or distention. Denies vomiting, or diarrhea. Denies blood in vomitus, stools, or per rectum. Denies black, tarry stools. Denies constipation. GENITOURINARY: Denies difficulty urinating, painful urination, frequency, blood in urine, testicular pain or penile discharge. MUSCULOSKELETAL: Denies back or neck pain or stiffness. Denies joint pain or swelling. SKIN: Denies rash, lesions or sores. HEMATOLOGIC : Denies easy bruising or bleeding. LYMPHATIC: Denies swollen glands. NEUROLOGICAL: Denies confusion or altered mental status. Denies loss of consciousness. Denies lightheadedness. Denies headache. Denies weakness or paralysis. Denies problems difficulty with ambulation, slurred speech. Denies sensory loss, numbness, or tingling. Denies seizures. PSYCHIATRIC: Denies anxiety or stress. Denies depression, suicidal ideation, or Physical Exam - Vital signs Vitals: Temp Pulse Resp BP Pulse Ox 98.7 F 86 16 160/87 H 96 10/03/18 18:07 10/03/18 18:07 10/03/18 18:07 10/03/18 18:07 10/03/18 18:07 - Notes Notes: PHYSICAL EXAMINATION: GENERAL: Well-appearing, well-nourished and in no acute distress. HEAD: Atraumatic, normocephalic. EYES: Pupils equal round and reactive to light, extraocular movements intact, sclera anicteric, conjunctiva are normal. Right-sided horizontal nystagmus, no vertical nystagmus ENT: Nares patent, oropharynx clear without exudates. Moist mucous membranes. NECK: Normal range of motion, supple without lymphadenopathy LUNGS: Breath sounds clear to auscultation bilaterally and equal. No wheezes rales or rhonchi. HEART: Regular rate and rhythm without murmurs ABDOMEN: Soft, nontender, nondistended abdomen. No guarding, no rebound. No masses appreciated. Musculoskeletal: Normal range of motion, no pitting or edema. No cyanosis. NEUROLOGICAL: Cranial nerves grossly intact. Normal speech, normal gait. Normal sensory, motor exams PSYCH: Normal mood, normal affect. SKIN: Warm, Dry, normal turgor, no rashes or lesions noted. Course - Re-evaluation Re-evalutation: 10/03/18 20:22 Laboratory 10/03/18 10/03/18 10/03/18 18:40 18:40 18:40 WBC 8.3 RBC 5.18 Hgb 14.9 Hct 43.8 MCV 85 MCH 28.7 MCHC 33.9 RDW 14.4 H Plt Count 214 Seg Neutrophils % 70.3 Lymphocytes % 19.3 Monocytes % 8.4 Eosinophils % 1.3 Basophils % 0.7 Absolute Neutrophils 5.8 Absolute Lymphocytes 1.6 Absolute Monocytes 0.7 Absolute Eosinophils 0.1 Absolute Basophils 0.1 Sodium 136.5 L Potassium 4.3 Chloride 102 Carbon Dioxide 22 Anion Gap 13 BUN 25 H Creatinine 0.91 Est GFR ( Amer) > 60 Est GFR (Non-Af Amer) > 60 Glucose 182 H Calcium 9.5 Total Bilirubin 0.8 Direct Bilirubin 0.3 Neonat Total Bilirubin Not Reportable Neonat Direct Bilirubin Not Reportable Neonat Indirect Bili Not Reportable AST 19 ALT 31 Alkaline Phosphatase 84 Troponin I < 0.012 Total Protein 7.4 Albumin 4.2 Chest X-Ray 10/03/18 18:30 IMPRESSION: NO ACUTE RADIOGRAPHIC FINDING IN THE CHEST. Temp Pulse Resp BP Pulse Ox 98.7 F 86 24 H 120/89 H 96 10/03/18 18:07 10/03/18 18:07 10/03/18 20:03 10/03/18 20:03 10/03/18 20:03 - Vital Signs Vital signs: Temp Pulse Resp BP Pulse Ox 98.7 F 86 24 H 120/89 H 96 10/03/18 18:07 10/03/18 18:07 10/03/18 20:03 10/03/18 20:03 10/03/18 20:03 - Laboratory Result Diagrams: 10/03/18 18:40 10/03/18 18:40 Laboratory results interpreted by me: 10/03/18 10/03/18 18:40 18:40 RDW 14.4 H Sodium 136.5 L BUN 25 H Glucose 182 H - Diagnostic Test Radiology reviewed: Image reviewed, Reports reviewed - EKG Interpretation by Me EKG shows normal: Sinus rhythm Rate: Normal Rhythm: NSR Discharge - Discharge Clinical Impression: Benign positional vertigo Qualifiers: Laterality: right Qualified Code(s): H81.11 - Benign paroxysmal vertigo, right ear Condition: Good Disposition: HOME, SELF-CARE Instructions: Vertigo ([facility]) Additional Instructions: Follow up with your [id number] hours for further care or return to the ED IMMEDIATELY if symptoms worsen or you have any concerns. If you cannot afford to follow up with your primary care physician a list of low cost clinics have been provided at the end of your discharge papers as well. Most prescribed medications have multiple side effects. The safest thing to do is when filling your prescription speak to your pharmacist regarding possible interactions with your normal home medications and over the counter medications such as Ibuprofen, Tylenol, Benadryl. If you experience any symptoms that cause you discomfort or concern you should discontinue the medication immediately and return to the emergency room or call your primary care physician. Prescriptions: Diazepam [Valium 5 mg Tablet] 5 mg PO QIDP PRN #15 tablet PRN Reason: Ondansetron [Zofran Odt 4 mg Tablet] 1 - 2 tab PO Q4H PRN #15 tab.rapdis PRN Reason: For Nausea/Vomiting Forms: Elevated Blood Pressure Referrals: HAY WHITNEY PA-C [Primary Care Provider] - Follow up in 3-5 days HAY HOLDEN DO [ASSOCIATE] - Follow up in 3-5 days
--- NOTE | 2018-10-04 10:22 | EKG REPORT ---
SEVERITY:- BORDERLINE ECG - SINUS RHYTHM BORDERLINE T ABNORMALITIES, INFERIOR LEADS : Confirmed by: Edi Conner 04-Oct-2018 10:21:13
== END 2018-10-03 20:35 | disposition home or self-care (01) ==
LOC: ER 17:57
DX: H81.11 Benign paroxysmal vertigo, right ear (principal); R11.0 Nausea; I48.91 Unspecified atrial fibrillation; I10 Essential (primary) hypertension; J44.9 Chronic obstructive pulmonary disease, unspecified; E11.9 Type 2 diabetes mellitus without complications; Z79.02 Long term (current) use of antithrombotics/antiplatelets
CPT/HCPCS: 93005; 99284; 36415; 85025; 80053; 84484; 71045; 93010; S0119

== ENCOUNTER → 2018-10-12 | Outpatient (CLI) | payer OTHER, BC ==
[2018-10-12 11:31] LABS: ABSOLUTE EOSINOPHILS # (AUTO) 0.1 10^3/uL (0.0-0.6); ABSOLUTE LYMPHOCYTES (AUTO) 1.4 10^3/uL (0.5-4.7); ABSOLUTE MONOCYTES (AUTO) 0.7 10^3/uL (0.1-1.4); ABSOLUTE NEUT (AUTO) 5.5 10^3/uL (1.7-8.2); BASOPHILS % (AUTO) 0.6 % (0-2); EOSINOPHILS % (AUTO) 1.2 % (0-6); HEMATOCRIT 43.4 % (37.9-51.0); HEMOGLOBIN 14.9 g/dL (13.5-17.0); LYMPHOCYTES % (AUTO) 18.6 % (13-45); MEAN CORPUSCULAR HGB CONC 34.4 g/dL (32.0-36.0); MEAN CORPUSCULAR VOLUME 85 fl (80-97); MONOCYTES % (AUTO) 8.9 % (3-13); PLATELET COUNT 177 10^3/uL (150-450); RED BLOOD COUNT 5.14 10^6/uL (4.35-5.55); RED CELL DISTRIBUTION WIDTH 14.6 % (11.5-14.0); SEGMENTED NEUTROPHILS % (AUTO) 70.7 % (42-78); TOTAL CELLS COUNTED % (AUTO) 100 %; WHITE BLOOD COUNT 7.8 10^3/uL (4.0-10.5)
[2018-10-12 11:38] LABS: APPEARANCE,URINE CLEAR; BILIRUBIN,URINE NEGATIVE (NEGATIVE); COLOR,URINE YELLOW; GLUCOSE, URINE >=500 mg/dL (NEGATIVE); KETONES,URINE NEGATIVE (NEGATIVE); LEUKOCYTE ESTERASE,URINE NEGATIVE (NEGATIVE); NITRITE,URINE NEGATIVE (NEGATIVE); PROTEIN,URINE NEGATIVE (NEGATIVE); URINE SPECIFIC GRAVITY 1.028; UROBILINOGEN,URINE NEGATIVE mg/dL (<2.0)
--- NOTE | 2018-10-12 11:52 | RADIOLOGY REPORT (SQ) ---
EXAM DESCRIPTION: CHEST PA/LATERAL COMPLETED DATE/TIME: 10/12/2018 11:22 am REASON FOR STUDY: M17.11, I10, E11.9 COMPARISON: CHEST FILMS 10/03/2018, 08/16/2018, 02/15/2017 EXAM PARAMETERS: NUMBER OF VIEWS: two views TECHNIQUE: Digital Frontal and Lateral radiographic views of the chest acquired. RADIATION DOSE: NA LIMITATIONS: none FINDINGS: LUNGS AND PLEURA: No opacities, masses or pneumothorax. No pleural effusion. MEDIASTINUM AND HILAR STRUCTURES: No masses or contour abnormalities. HEART AND VASCULAR STRUCTURES: Heart normal size. No evidence for failure. BONES: No acute findings. HARDWARE: None in the chest. OTHER: No other significant finding. IMPRESSION: NO SIGNIFICANT RADIOGRAPHIC FINDING IN THE CHEST. TECHNICAL DOCUMENTATION: JOB ID: [id number] [employer]- All Rights Reserved Reading location - IP/workstation name: [email or web address]
[2018-10-12 12:10] LABS: ANION GAP 13 (5-19); BLOOD UREA NITROGEN 21 mg/dL (7-20); CALCIUM 9.4 mg/dL (8.4-10.2); CARBON DIOXIDE 23 mmol/L (22-30); CHLORIDE 103 mmol/L (98-107); GLUCOSE 179 mg/dL (75-110); POTASSIUM 4.6 mmol/L (3.6-5.0); SODIUM 138.9 mmol/L (137-145)
--- NOTE | 2018-10-12 16:12 | EKG REPORT ---
SEVERITY:- NORMAL ECG - SINUS RHYTHM : Confirmed by: Lucina St MD 12-Oct-2018 16:10:40
== END ==
LOC: OD 10:51
PROVIDERS: ATTEND Orthopaedic Surgery
DX: Z01.810 Encounter for preprocedural cardiovascular examination (principal); Z01.811 Encounter for preprocedural respiratory examination; Z01.812 Encounter for preprocedural laboratory examination; I10 Essential (primary) hypertension; E11.9 Type 2 diabetes mellitus without complications; M17.11 Unilateral primary osteoarthritis, right knee; I48.91 Unspecified atrial fibrillation
CPT/HCPCS: 36415; 71046; 80048; 81001; 83036; 85025; 93005; 93010

== ENCOUNTER 2018-11-01 05:24 | Inpatient (IN) | payer OTHER, BC ==
[~2018-11-01 05:24] MED LIST: BUPIVACAINE INJ/PF LIPOSOME/PF 266 MG/20 ML SDV INJ PRN; CEFAZOLIN INJ 1 GM VIAL IV PRN; CEFAZOLIN INJ 1 GM VIAL ONE; IBUPROFEN 800 MG in NORMAL SALINE 250 ML IV PRN; LACTATED RINGERS 1000 ML IV PRN; LIDOCAINE 0.5% INJ-PF (5 MG/ML) 50 ML SDV SUBCUT PRN; OXYCODONE HCL SR 10 MG TABLET PO ONE; OXYCODONE HCL SR 10 MG TABLET PO PRN; PANTOPRAZOLE SODIUM 20 MG TABLET.DR PO ONE; PANTOPRAZOLE SODIUM 20 MG TABLET.DR PO PRN; VANCOMYCIN HCL 1,000 MG in DEXTROSE 5%-WATER 250 ML IV PRN
[2018-11-01] MEDS ORDERED: FENTANYL CITRATE INJ/PF 100 MCG/2 ML AMPUL ONE (06:50)
[2018-11-01] MEDS ORDERED: TRANEXAMIC ACID INJ/PF 1,000 MG/10 ML SDV IV ONE ×2 (06:51→10:04)
[2018-11-01] MEDS ORDERED: ONDANSETRON HCL INJ/PF 4 MG/2 ML SDV ONE (06:51)
[2018-11-01] MEDS ORDERED: PROPOFOL INJ 200 MG/20 ML VIAL IV ONE ×2 (06:51→09:05)
[2018-11-01] MEDS ORDERED: DEXAMETHASONE SOD PHOSPHATE INJ 4 MG/1 ML VIAL ONE (06:51)
[2018-11-01] MEDS ORDERED: MIDAZOLAM 2 MG/2 ML INJ ONE (06:51)
[2018-11-01] MEDS ORDERED: LIDOCAINE 2% INJ (20 MG/ML) 20 ML MDV ONE (06:53)
[2018-11-01 07:02] LABS: INTERNATIONAL RATION (INR) 0.96; PROTHROMBIN TIME 13.3 SEC (11.4-15.4)
[2018-11-01 07:03] LABS: PARTIAL THROMBOPLASTIN TIME 29.9 SEC (23.5-35.8)
[2018-11-01] MEDS ORDERED: THROMBIN (BOVINE) TOPICAL 20000 UNIT VIAL ONE (07:04)
[2018-11-01] MEDS ORDERED: BUPIVACAINE HCL 0.25% /EPINEPHRINE INJ/PF 30 ML SDV ONE (07:04)
[2018-11-01] MEDS ORDERED: OXYCODONE-ACETAMINOPHEN 5-325 MG TABLET PO PRN ×2 (08:09)
[2018-11-01] MEDS ORDERED: ONDANSETRON HCL INJ/PF 4 MG/2 ML SDV IV PRN ×2 (08:09→08:33)
[2018-11-01] MEDS ORDERED: PROMETHAZINE HCL INJ 25 MG/1 ML VIAL IV PRN (08:09)
[2018-11-01] MEDS ORDERED: FENTANYL CITRATE INJ/PF 100 MCG/2 ML AMPUL IV PRN ×3 (08:09)
[2018-11-01] MEDS ORDERED: DIPHENHYDRAMINE HCL 50 MG/ML VIAL IV PRN ×2 (08:09→08:33)
[2018-11-01] MEDS ORDERED: MORPHINE SULFATE 10 MG/ML INJ IV PRN (08:09)
[2018-11-01] MEDS ORDERED: MEPERIDINE HCL/PF INJ 25 MG/1 ML DISP.SYRIN IV PRN (08:09)
[2018-11-01] MEDS ORDERED: MAG HYDROX/AL HYDROX/SIMETH SUSP 30 ML UDCUP PO PRN (08:33)
[2018-11-01] MEDS ORDERED: ONDANSETRON 4 MG TAB.RAPDIS PO PRN (08:33)
[2018-11-01] MEDS ORDERED: RINGERS SOLUTION,LACTATED 1,000 ML IV PRN (08:33)
[2018-11-01] MEDS ORDERED: ZOLPIDEM TARTRATE 5 MG TABLET PO PRN (08:33)
[2018-11-01] MEDS ORDERED: ACETAMINOPHEN 325 MG TABLET PO PRN (08:33)
[2018-11-01] MEDS ORDERED: (PENDING PHARMACY ID) (Ergocalciferol (Vitamin D2) [Vitamin D2] 50,000 UNIT) PO SCH (08:45)
[2018-11-01] MEDS ORDERED: INSULIN GLARGINE HUM REC ANLOG 50 UNIT INJ SCH (08:45)
[2018-11-01] MEDS ORDERED: [UNRECOGNIZED DRUG - OTHER] INJ SCH (08:45)
--- NOTE | 2018-11-01 08:46 | Operative Report ---
Operative Report DATE OF SURGERY: 11/01/18 PREOPERATIVE DIAGNOSIS: Right knee arthritis OPERATION: Right knee arthroplasty SURGEON: BOB VIERA ANESTHESIA: Spinal TISSUE REMOVED OR ALTERED: Bone to pathology ESTIMATED BLOOD LOSS: 50 PROCEDURE: Implants used: Femur: [place] triathlon size 7 CR uncemented femur Tibia: 7 uncemented tibia Tibial liner: 9 mm CS insert Patella: 40 mm uncemented patella Procedure with the patient supine on the operating table the right the limb is prepped and draped in a sterile fashion. The limb was elevated for exsanguination and the tourniquet inflated to 280 torr. A median parapatellar incision and approach approach the knee is taken because of previous knee surgery.. Access is gained to the femoral canal through the intercondylar notch. Intramedullary alignment instrumentation used to resect 10 mm of distal femur in 5 of valgus. Sizing guide indicated a size 7 femur. Appropriate cutting jig is then used to fashion anterior posterior and chamfer cuts. A trial reduction femurs performed and this is judged to be adequate. Attention was next turned to the tibia. Using an extra medullary alignment system 9 millimeters was resected off the lateral tibial plateau. This is sized to a size 7 tibia. A trial reduction was now performed with a 7 femur and a 7 tibia using a 9 millimeters spacer. It is full extension and central patellofemoral tracking. The articular surface the patella was next resected using an oscillating saw. All trial implants were removed. Polymethylmethacrylate is mixed and used to cement the above implants in place. On adequate curing the cement excess cement was removed the tourniquet was deflated hemostasis obtained the wound is then closed in layers using interrupted Vicryl followed by anabell. A sterile compressive dressing was applied and the patient returned to recovery room in satisfactory condition.
[2018-11-01] MEDS ORDERED: DEXTROSE 50%-WATER SYRINGE 12.5 GM/25 ML DOSE IV PRN (09:00)
[2018-11-01] MEDS ORDERED: DEXTROSE 40% GEL 15 GM TUBE PO PRN (09:00)
[2018-11-01] MEDS ORDERED: DEXTROSE 50%-WATER SYRINGE 25 GM/50 ML DOSE IV PRN (09:00)
[2018-11-01] MEDS ORDERED: DEXTROSE 40% GEL 15 GM TUBE X 2 PO PRN (09:00)
[2018-11-01] MEDS ORDERED: GLUCAGON,HUMAN RECOMB 1 MG INJ IM PRN (09:00)
--- NOTE | 2018-11-01 09:22 | RADIOLOGY REPORT (SQ) ---
EXAM DESCRIPTION: KNEE RIGHT 2 VIEWS COMPLETED DATE/TIME: 11/01/2018 9:08 am REASON FOR STUDY: Post OP -Long Cassette in PACU M17.11 UNILATERAL PRIMARY OSTEOARTHRITIS, RIGHT KN EE COMPARISON: None. NUMBER OF VIEWS: Two views. TECHNIQUE: AP and lateral radiographic images acquired of the right knee. LIMITATIONS: None. FINDINGS: Postoperative findings of right knee total arthroplasty with expected appearance of arthro plasty components. No evidence of perihardware fracture. IMPRESSION: Postoperative findings of right knee total arthroplasty with expected appearance of arth roplasty components. No evidence of perihardware fracture. TECHNICAL DOCUMENTATION: JOB ID: [id number] [employer]- All Rights Reserved Reading location - IP/workstation name: [email or web address]
[2018-11-01] MEDS ORDERED: [UNRECOGNIZED DRUG - OTHER] PO SCH (10:00)
[2018-11-01] MEDS ORDERED: DILTIAZEM HCL 120 MG CAP.SR.24H PO SCH (10:00)
[2018-11-01] MEDS ORDERED: LISINOPRIL PO SCH (10:00)
[2018-11-01] MEDS ORDERED: (PENDING PHARMACY ID) (Empagliflozin [Jardiance] 25 MG) PO SCH (10:00)
[2018-11-01] MEDS ORDERED: PRENATAL VITAMIN W DHA CAPSULE PO SCH (10:00)
[2018-11-01] MEDS ORDERED: HYDROCHLOROTHIAZIDE PO SCH (10:00)
[2018-11-01] MEDS ORDERED: APIXABAN 5 MG TABLET PO SCH (10:00)
[2018-11-01] MEDS: TRANEXAMIC ACID INJ/PF 1,000 MG/10 ML SDV IV ONE ×2 (10:08→13:32)
[2018-11-01] MEDS: SOTALOL HCL 80 MG TABLET PO SCH ×2 (12:58→21:18)
[2018-11-01] MEDS: ATORVASTATIN CALCIUM 80 MG TABLET PO SCH ×2 (13:34→21:19)
[2018-11-01] MEDS: GLIPIZIDE 5 MG TABLET PO SCH ×2 (13:34→17:39)
[2018-11-01] MEDS: METFORMIN HCL 500 MG TABLET PO SCH ×2 (13:34→17:40)
[2018-11-01] MEDS: SENNOSIDES/DOCUSATE 8.6-50 MG 1 EACH TABLET PO SCH ×2 (13:35→17:40)
[2018-11-01] MEDS: OXYCODONE HCL SR 10 MG TABLET PO SCH ×2 (13:35→21:19)
[2018-11-01] MEDS: GABAPENTIN 300 MG CAPSULE PO SCH ×3 (13:35→17:39)
[2018-11-01] MEDS: INSULIN LISPRO 100 UNIT/ML 3 ML VIAL SUBCUT SCH ×3 (13:35→21:19)
[2018-11-01] MEDS ORDERED: PHENYLEPHRINE HCL INJ/PF 10 MG/1 ML SDV ONE (14:05)
[2018-11-01] MEDS: IBUPROFEN 800 MG in NORMAL SALINE 250 ML IV SCH (14:50)
[2018-11-01] MEDS: OXYCODONE HCL IR 5 MG TABLET PO PRN ×2 (14:51→20:56)
[2018-11-01] MEDS ORDERED: VANCOMYCIN HCL 1,000 MG in DEXTROSE 5%-WATER 250 ML IV ONE (20:30)
[2018-11-02] MEDS: IBUPROFEN 800 MG in NORMAL SALINE 250 ML IV SCH ×2 (00:56→06:05)
[2018-11-02 06:18] LABS: HEMATOCRIT 37.1 % (37.9-51.0); HEMOGLOBIN 12.7 g/dL (13.5-17.0); MEAN CORPUSCULAR HGB CONC 34.2 g/dL (32.0-36.0); MEAN CORPUSCULAR VOLUME 85 fl (80-97); PLATELET COUNT 141 10^3/uL (150-450); RED BLOOD COUNT 4.37 10^6/uL (4.35-5.55); RED CELL DISTRIBUTION WIDTH 14.6 % (11.5-14.0); WHITE BLOOD COUNT 10.7 10^3/uL (4.0-10.5)
[2018-11-02 06:39] LABS: ANION GAP 9 (5-19); BLOOD UREA NITROGEN 22 mg/dL (7-20); CALCIUM 8.4 mg/dL (8.4-10.2); CARBON DIOXIDE 25 mmol/L (22-30); CHLORIDE 100 mmol/L (98-107); GLUCOSE 206 mg/dL (75-110); POTASSIUM 4.2 mmol/L (3.6-5.0); SODIUM 133.9 mmol/L (137-145)
--- NOTE | 2018-11-02 06:53 | PDOC DISCHARGE SUMMARY ---
General - Admit/Disc Date/PCP Admission Date/Primary Care Provider: 11/01/18 05:24 HAY WHITNEY PA-C Discharge Date: 11/02/18 - Discharge Diagnosis (1) Arthritis of right knee Is this a current diagnosis for this admission?: Yes - Additional Information Resuscitation Status: Full Code Home Medications: Apixaban [Eliquis 5 mg Tablet] 5 mg PO BID 11/01/18 Atorvastatin Calcium [Lipitor 80 mg Tablet] 80 mg PO QHS 11/01/18 Diltiazem HCl [Cardizem] 120 mg PO DAILY 11/01/18 Empagliflozin [Jardiance] 25 mg PO DAILY 11/01/18 Ergocalciferol (Vitamin D2) [Drisdol 50,000 unit (1.25MG) Capsule] 50,000 unit PO WE 11/01/18 Gabapentin [Neurontin 300 mg Capsule] 300 mg PO Q8 11/01/18 Glipizide [Glucotrol] 5 mg PO BID 11/01/18 Ibuprofen [Motrin 800 mg Tablet] 800 mg PO BIDP PRN 11/01/18 Insulin Glargine,Hum.rec.anlog [Lantus Insulin 100 Unit/1 ml 10 ml] 50 units SQ QPM 11/01/18 Lisinopril/Hydrochlorothiazide [Zestoretic 20-25 mg Tablet] 1 tab PO DAILY 11/01/18 Metformin HCl [Glucophage 500 mg Tablet] 1,000 mg PO BID 11/01/18 Nitroglycerin [Nitrostat 0.4 mg (1/150 Gr) Tabs 25/Bottle] 0.4 mg SL Q5MP PRN 11/01/18 Sotalol HCl [Betapace AF] 80 mg PO BID 11/01/18 History of Present Illness History of Present Illness: HUSSEIN BHATT is a 58 year old male Patient is a 58-year-old white male with a history of remote trauma to the right distal femur as a child who has subsequently developed a posttraumatic osteoarthritis with progressive pain and functional disability. Patient is admitted for elective right knee arthroplasty. Hospital Course Hospital Course: Patient is admitted through the operating where he undergoes uncomplicated right knee arthroplasty. Is returned to floor in satisfactory condition. Seen by physical therapy ambulate 250 feet on the day of surgery. He is comfortable overnight. Physical Exam Vital Signs: Temp Pulse Resp BP Pulse Ox 37.8 C 96 18 133/66 H 93 11/01/18 23:50 11/01/18 23:50 11/01/18 23:50 11/01/18 23:50 11/01/18 23:50 Intake & Output 10/31/18 11/01/18 11/02/18 06:59 06:59 06:59 Intake Total 0 6796 Output Total 100 Balance 0 6696 Physical Exam: Overweight middle-aged white male sitting up in bed in no acute distress. Patient is alert, conversant, and appropriate. General appearance: PRESENT: no acute distress, mild distress, well-developed, well-nourished Head exam: PRESENT: normocephalic Respiratory exam: PRESENT: unlabored Cardiovascular exam: PRESENT: RRR Pulses: PRESENT: +1 pedal pulses bilateral Vascular exam: PRESENT: normal capillary refill GI/Abdominal exam: PRESENT: soft Rectal exam: PRESENT: deferred Extremities exam: PRESENT: other - Compressive dressings taken down on the right lower extremity. Underlying OpSite dressing clean dry and intact. Minimal swelling. Distal neurovascular examination is intact. Neurological exam: PRESENT: alert, awake, oriented to person, oriented to place, oriented to time, oriented to situation, CN II-XII grossly intact. ABSENT: motor sensory deficit Psychiatric exam: PRESENT: appropriate affect, normal mood. ABSENT: homicidal ideation, suicidal ideation Skin exam: PRESENT: dry, intact, warm. ABSENT: cyanosis, rash Results Laboratory Results: 11/02/18 05:52 11/02/18 05:52 11/01/18 11/02/18 11/02/18 06:24 05:52 05:52 WBC 10.7 H RBC 4.37 Hgb 12.7 L Hct 37.1 L MCV 85 MCH 29.0 MCHC 34.2 RDW 14.6 H Plt Count 141 L Sodium 133.9 L Potassium 4.7 4.2 Chloride 100 Carbon Dioxide 25 Anion Gap 9 BUN 22 H Creatinine 0.75 Est GFR ( Amer) > 60 Est GFR (Non-Af Amer) > 60 Glucose 206 H Calcium 8.4 Impressions: Knee X-Ray 11/01/18 08:35 IMPRESSION: Postoperative findings of right knee total arthroplasty with expected appearance of arthroplasty components. No evidence of perihardware fracture. Status: Imported from PACS Qualifiers - * PATIENT BEING DISCHARGED WITH ANY OF THE FOLLOWING DIAGNOSIS: No VTE patient discharged on overlapping Therapy?: Yes Acute Heart Failure - Is this a Heart Failure Patient?: No Plan Discharge Plan: Patient be discharged home with home health services and DME. Follow-up with Dr. Garcia and [facility] for surgery in 2 weeks for staple removal.
[2018-11-02] MEDS: INSULIN LISPRO 100 UNIT/ML 3 ML VIAL SUBCUT SCH (08:05)
[2018-11-02] MEDS: OXYCODONE HCL IR 5 MG TABLET PO PRN (08:06)
[2018-11-02 09:37] VITALS: BP 134/75
[2018-11-02] MEDS ORDERED: LISINOPRIL 10 MG TABLET PO SCH (10:00)
[2018-11-02] MEDS ORDERED: HYDROCHLOROTHIAZIDE 25 MG TABLET PO SCH (10:00)
[2018-11-08] MEDS ORDERED: ERGOCALCIFEROL (VITAMIN D2) 50000 UNIT (1.25 MG) CAPSULE PO SCH (10:00)
== END 2018-11-02 10:00 | disposition home health service (06) | DRG 470 ==
LOC: INOR 05:24 → 4S 12:43
PROVIDERS: ADMIT Orthopaedic Surgery; ATTEND Orthopaedic Surgery
PROC: 0SRC0J9 Replacement of Right Knee Joint with Synthetic Substitute, Cemented, Open Approach (ICD-10-PCS; principal; 2018-11-01 07:30)
DX: M17.11 Unilateral primary osteoarthritis, right knee (principal); E11.9 Type 2 diabetes mellitus without complications; J44.9 Chronic obstructive pulmonary disease, unspecified; Z79.01 Long term (current) use of anticoagulants; Z79.899 Other long term (current) drug therapy; Z95.5 Presence of coronary angioplasty implant and graft
CPT/HCPCS: 01402; 36415; 80048; 82962; 84132; 85027; 85610; 85730; 88304; 88305; 88311; 94799; C1776; J0690; J1100; J1741; J1815; J2250; J2370; J2405; J2704; J3010; J3370; J3490; J7050; J7060

== ENCOUNTER 2019-09-22 17:19 | Emergency (ER) | payer OTHER, BC ==
--- NOTE | 2019-09-22 17:55 | ER Document Report ---
ED Medical Screen (RME) - General Chief Complaint: Abdominal Pain Stated Complaint: ABDOMINAL PAIN Time Seen by Provider: 09/22/19 17:46 Primary Care Provider: HAY WHITNEY PA-C [Primary Care Provider] - Follow up as needed Mode of Arrival: Ambulatory Information source: Patient Notes: 59-year-old male with history of diabetes high blood pressure presents emergency department with complaints of generalized abdominal pain that radiates to bilateral flanks. Reports abdominal tightness for the past 4 days. Reports increased last night. He took a stool softener and had a small bowel movement this morning. Reports last time he had a normal bowel movement was 4 days ago. Patient denies history of constipation. Patient reports his stomach is so full he feels like it is pressing up on his diaphragm having a difficult breathing. He reports that feeling goes away when he stretches. He denies fever vomiting. He denies covert exposure. He reports he has never had this feeling before. Also reports his sugars are all over the place. I have greeted and performed a rapid initial assessment of this patient. A comprehensive ED assessment and evaluation of the patient, analysis of test results and completion of the medical decision making process will be conducted by additional ED providers. TRAVEL OUTSIDE OF THE [place] IN LAST 30 DAYS: No - Related Data Allergies/Adverse Reactions: No Known Allergies Allergy (Verified 10/16/18 13:03) Past Medical History - Social History Chew tobacco use (# tins/day): No Frequency of alcohol use: None Drug Abuse: None - Past Medical History Cardiac Medical History: Reports: Hx Atrial Fibrillation - on Eliquis, Hx Hypertension Denies: Hx Congestive Heart Failure, Hx Coronary Artery Disease, Hx Heart Attack, Hx Hypercholesterolemia, Hx Peripheral Vascular Disease, Hx Pulmonary Embolism, Hx Heart Murmur Pulmonary Medical History: Reports: Hx Bronchitis, Hx COPD, Hx Sleep Apnea - doesn't use machine, made things worse (per pt) Denies: Hx Asthma, Hx Pneumonia, Hx Respiratory Failure, Hx Tuberculosis Neurological Medical History: Denies: Hx Cerebrovascular Accident, Hx Seizures Endocrine Medical History: Reports: Hx Diabetes Mellitus Type 2. Denies: Hx Graves' Disease, Hx Hyperthyroidism, Hx Hypothyroidism Renal/ Medical History: Denies: Hx Kidney Stones, Hx Peritoneal Dialysis Malignancy Medical History: Denies Hx Lung Cancer GI Medical History: Denies: Hx Gastroesophageal Reflux Disease Musculoskeltal Medical History: Reports Hx Arthritis, Denies Hx Fibromyalgia, Denies Hx Muscular Dystrophy, Denies Hx Systemic Lupus Erythematosus Psychiatric Medical History: Denies: Hx Bipolar Disorder, Hx Depression, Hx Post Traumatic Stress Disorder Traumatic Medical History: Reports: Hx Fractures - right leg Past Surgical History: Reports: Hx Cardiac Catheterization - 1 stent, Hx Orthopedic Surgery - bilateral knees. Denies: Hx Pacemaker - Immunizations Hx Diphtheria, Pertussis, Tetanus Vaccination: No Physical Exam - Vital signs Vitals: Temp 97.6 F 09/22/19 17:20 Course - Vital Signs Vital signs: Temp Pulse Resp BP Pulse Ox 97.6 F 56 L 18 146/93 H 96 09/22/19 17:23 09/22/19 17:23 09/22/19 17:23 09/22/19 17:23 09/22/19 17:23 Doctor's Discharge - Discharge Referrals: HAY WHITNEY PA-C [Primary Care Provider] - Follow up as needed
[2019-09-22 18:23] LABS: ABSOLUTE BASOPHILS # (AUTO) 0.1 10^3/uL (0.0-0.2); ABSOLUTE EOSINOPHILS # (AUTO) 0.1 10^3/uL (0.0-0.6); ABSOLUTE LYMPHOCYTES (AUTO) 1.8 10^3/uL (0.5-4.7); ABSOLUTE MONOCYTES (AUTO) 0.9 10^3/uL (0.1-1.4); ABSOLUTE NEUT (AUTO) 7.6 10^3/uL (1.7-8.2); EOSINOPHILS % (AUTO) 1.3 % (0-6); HEMATOCRIT 46.3 % (37.9-51.0); HEMOGLOBIN 16.2 g/dL (13.5-17.0); LYMPHOCYTES % (AUTO) 17.1 % (13-45); MEAN CORPUSCULAR HEMOGLOBIN 29.6 pg (27.0-33.4); MEAN CORPUSCULAR HGB CONC 34.9 g/dL (32.0-36.0); MEAN CORPUSCULAR VOLUME 85 fl (80-97); MONOCYTES % (AUTO) 8.5 % (3-13); PLATELET COUNT 206 10^3/uL (150-450); RED BLOOD COUNT 5.46 10^6/uL (4.35-5.55); SEGMENTED NEUTROPHILS % (AUTO) 72.1 % (42-78); TOTAL CELLS COUNTED % (AUTO) 100 %; WHITE BLOOD COUNT 10.5 10^3/uL (4.0-10.5)
--- NOTE | 2019-09-22 18:30 | RADIOLOGY REPORT (SQ) ---
EXAM DESCRIPTION: ACUTE ABDOMEN SERIES IMAGES COMPLETED DATE/TIME: 09/22/2019 6:21 pm REASON FOR STUDY: abd pain COMPARISON: None. NUMBER OF VIEWS: Three views. TECHNIQUE: Frontal chest, supine abdomen and upright/decubitus abdomen radiographic images acquired. LIMITATIONS: None. FINDINGS: CHEST: Lungs clear of infiltrates. FREE AIR: None. No abnormal gas collections. BOWEL GAS PATTERN: Nonobstructive pattern. No dilated loops or air fluid levels. CALCIFICATIONS: No suspicious calcifications. HARDWARE: None in the abdomen. SOFT TISSUES: No gross mass or suggestion of organomegaly. BONES: No acute fracture. No worrisome bone lesions. OTHER: No other significant finding. IMPRESSION: NO RADIOGRAPHIC EVIDENCE FOR ACUTE ABDOMINAL DISEASE. TECHNICAL DOCUMENTATION: JOB ID: [id number] [employer]- All Rights Reserved Reading location - IP/workstation name: [email or web address]
[2019-09-22 18:41] LABS: ALBUMIN 4.5 g/dL (3.5-5.0); ALKALINE PHOSPHATASE 95 U/L (38-126); ANION GAP 10 (5-19); ASPARTATE AMINO TRANSFERASE 26 U/L (17-59); BILIRUBIN,TOTAL 1.3 mg/dL (0.2-1.3); BLOOD UREA NITROGEN 25 mg/dL (7-20); CALCIUM 9.1 mg/dL (8.4-10.2); CARBON DIOXIDE 26 mmol/L (22-30); CHLORIDE 97 mmol/L (98-107); GLUCOSE 180 mg/dL (75-110); POTASSIUM 4.5 mmol/L (3.6-5.0); TOTAL PROTEIN 7.8 g/dL (6.3-8.2)
[2019-09-22 18:43] LABS: APPEARANCE,URINE CLEAR; BILIRUBIN,URINE NEGATIVE (NEGATIVE); COLOR,URINE STRAW; GLUCOSE, URINE >=500 mg/dL (NEGATIVE); KETONES,URINE NEGATIVE (NEGATIVE); LEUKOCYTE ESTERASE,URINE NEGATIVE (NEGATIVE); NITRITE,URINE NEGATIVE (NEGATIVE); PROTEIN,URINE NEGATIVE (NEGATIVE); URINE SPECIFIC GRAVITY 1.018; UROBILINOGEN,URINE NEGATIVE mg/dL (<2.0)
[2019-09-22] MEDS ORDERED: RINGERS SOLUTION,LACTATED 1,000 ML IV ONE (20:05)
[2019-09-22] MEDS ORDERED: ONDANSETRON HCL INJ/PF 4 MG/2 ML SDV IV ONE (20:05)
--- NOTE | 2019-09-22 20:07 | ER Document Report ---
ED GI/ - General Chief Complaint: Abdominal Pain Stated Complaint: ABDOMINAL PAIN Time Seen by Provider: 09/22/19 17:46 Primary Care Provider: HAY WHITNEY PA-C [Primary Care Provider] - Follow up as needed Mode of Arrival: Ambulatory Notes: 59-year-old male past medical history significant for diabetes, hypertension, atrial fibrillation presents to the emergency room complaining of constipation with generalized abdominal pain and bloating for the past 4 days. States he feels bloated. States he has been having small bowel movements but no large bowel movement in the past 4 days. Describes the pain as cramping. Complains of nausea but no vomiting, no urinary symptoms, no fevers, eating and drinking normally. No recent travel, no recent antibiotics. No medications at home for pain. TRAVEL OUTSIDE OF THE [place] IN LAST 30 DAYS: No - Related Data Allergies/Adverse Reactions: No Known Allergies Allergy (Verified 10/16/18 13:03) Past Medical History - General Information source: Patient - Social History Smoking Status: Never Smoker Chew tobacco use (# tins/day): No Frequency of alcohol use: None Drug Abuse: None Lives with: Family Family History: Reviewed & Not Pertinent Patient has homicidal ideation: No - Past Medical History Cardiac Medical History: Reports: Hx Atrial Fibrillation - on Eliquis, Hx Hyp ertension Denies: Hx Congestive Heart Failure, Hx Coronary Artery Disease, Hx Heart Attack, Hx Hypercholesterolemia, Hx Peripheral Vascular Disease, Hx Pulmonary Embolism, Hx Heart Murmur Pulmonary Medical History: Reports: Hx Bronchitis, Hx COPD, Hx Sleep Apnea - doesn't use machine, made things worse (per pt) Denies: Hx Asthma, Hx Pneumonia, Hx Respiratory Failure, Hx Tuberculosis Neurological Medical History: Denies: Hx Cerebrovascular Accident, Hx Seizures Endocrine Medical History: Reports: Hx Diabetes Mellitus Type 2. Denies: Hx Graves' Disease, Hx Hyperthyroidism, Hx Hypothyroidism Renal/ Medical History: Denies: Hx Kidney Stones, Hx Peritoneal Dialysis Malignancy Medical History: Denies Hx Lung Cancer GI Medical History: Denies: Hx Gastroesophageal Reflux Disease Musculoskeletal Medical History: Reports Hx Arthritis, Denies Hx Fibromyalgia, Denies Hx Muscular Dystrophy, Denies Hx Systemic Lupus Erythematosus Psychiatric Medical History: Denies: Hx Bipolar Disorder, Hx Depression, Hx Post Traumatic Stress Disorder Traumatic Medical History: Reports: Hx Fractures - right leg Past Surgical History: Reports: Hx Cardiac Catheterization - 1 stent, Hx Orthopedic Surgery - bilateral knees. Denies: Hx Pacemaker - Immunizations Hx Diphtheria, Pertussis, Tetanus Vaccination: No Review of Systems - Review of Systems Constitutional: No symptoms reported Cardiovascular: No symptoms reported Respiratory: No symptoms reported Gastrointestinal: Abdominal pain, Nausea, Constipation. denies: Vomiting Genitourinary: No symptoms reported Musculoskeletal: No symptoms reported -: Yes All other systems reviewed and negative Physical Exam - Vital signs Vitals: Temp 97.6 F 09/22/19 17:20 - General General appearance: Appears well, Alert In distress: Mild - HEENT Head: Normocephalic, Atraumatic Eyes: Normal Pupils: PERRL - Respiratory Respiratory status: No respiratory distress Chest status: Nontender Breath sounds: Normal Chest palpation: Normal - Cardiovascular Rhythm: Irregularly irregular Heart sounds: Normal auscultation Murmur: No - Abdominal Inspection: Obese Distension: Distended Bowel sounds: Normal Tenderness: Tender - Mild diffuse generalized tenderness on palpation.. No: McBurney's point, English's sign, Guarding, Rebound Organomegaly: No organomegaly - Back Back: Normal, Nontender. No: CVA tenderness - Neurological Neuro grossly intact: Yes Cognition: Normal Orientation: AAOx4 Gilma Coma Scale Eye Opening: Spontaneous Gilma Coma Scale Verbal: Oriented Gilma Coma Scale Motor: Obeys Commands Gilma Coma Scale Total: 15 Speech: Normal Motor strength normal: LUE, RUE, LLE, RLE Sensory: Normal - Skin Skin Temperature: Warm Skin Moisture: Dry Skin Color: Normal Course - Re-evaluation Re-evalutation: 09/22/19 20:07 Patient is resting with minimal discomfort. Reviewed lab and x-ray results with patient. Aware of need for additional diagnostic testing. Patient complains of nausea. Will give IV Zofran, CT abdomen pelvis IV contrast ordered. 09/22/19 21:07 Patient is resting comfortably he is currently pain-free on exam. Reviewed CAT scan results with patient. Nausea has resolved. Patient was counseled to use Zofran as needed for nausea. Can take Tylenol as needed for pain. Follow-up primary care physician next week. Patient was given strict return to the emergency room guidelines. Return for any new or worsening symptoms. All questions were answered. Patient verbalized understanding and agrees with plan of care. - Vital Signs Vital signs: Temp Pulse Resp BP Pulse Ox 97.6 F 56 L 18 146/93 H 96 09/22/19 17:23 09/22/19 17:23 09/22/19 17:23 09/22/19 17:23 09/22/19 17:23 - Laboratory Result Diagrams: 09/22/19 18:10 09/22/19 18:10 Laboratory results interpreted by me: 09/22/19 09/22/19 09/22/19 18:10 18:10 18:10 RDW 15.0 H Sodium 132.9 L Chloride 97 L BUN 25 H Glucose 180 H Urine Glucose (UA) >=500 H - Diagnostic Test Radiology reviewed: Reports reviewed Discharge - Discharge Clinical Impression: Abdominal pain of unknown etiology, Nausea Condition: Stable Disposition: HOME, SELF-CARE Instructions: Abdominal Pain ([facility]) Additional Instructions: Encourage fluids Zofran as needed for nausea, Tylenol or Motrin for pain. Recheck with primary care physician next week. Return for any new or worsening symptoms. Referrals: HAY WHITNEY PA-C [Primary Care Provider] - Follow up as needed
--- NOTE | 2019-09-22 20:53 | RADIOLOGY REPORT (SQ) ---
CLINICAL INDICATION: abdominal pain. . TECHNIQUE: Contrast enhanced spiral axial CT imaging was obtained of the abdomen and pelvis with multiplanar reconstructions. This exam was performed according to our departmental dose-optimization program, which includes automated exposure control, adjustment of the mA and/or kV according to patient size and/or use of iterative reconstruction techniques. Additional delayed phase imaging COMPARISON: None. CORRELATION: None. FINDINGS: Abdomen: The lung bases are grossly clear. The heart is of normal size. Significant coronary calcification. No evidence of pleural or pericardial fluid. The liver is fatty infiltrated.. The gallbladder is physiologically distended without inflammatory change. The pancreas is unremarkable. The spleen is unremarkable. The adrenals are unremarkable. The kidneys appear grossly normal without evidence of urolithiasis or hydronephrosis. There is no evidence of free air. No free fluid. No bulky adenopathy. Abdominal aorta is nonaneurysmal. Pelvis: The bowel is nonobstructed. The bowel is unopacified with oral contrast. Pelvic contents are unremarkable. The appendix is normal. Visualized bones are unremarkable. A lipoma is identified of the right iliopsoas, not likely of any clinical concern IMPRESSION: No acute intra-abdominal process is identified. The cause of the patient's abdominal pain is not identified on this examination..
[2019-09-22] MEDS ORDERED: ONDANSETRON ODT 4 MG TAB (6 TAB/ER DISP) PO PRN (21:10)
[2019-09-22 21:30] VITALS: BP 124/74
== END 2019-09-22 21:30 | disposition home or self-care (01) ==
LOC: ER 17:19
DX: R10.84 Generalized abdominal pain (principal); K59.00 Constipation, unspecified; R10.817 Generalized abdominal tenderness; R11.0 Nausea; I10 Essential (primary) hypertension; E11.9 Type 2 diabetes mellitus without complications; J44.9 Chronic obstructive pulmonary disease, unspecified
CPT/HCPCS: 99284; 96361; 96374; 36415; 83690; 85025; 80053; 81001; 74022; 74177; J2405; J7120